=== PATIENT | female | born 1945 | race Two or more races ===

== ENCOUNTER 2021-04-20 19:27 | Inpatient (IN) | payer BC, OTHER ==
[~2021-04-20] VITALS: Ht 152.4 cm; Wt 78.8 kg
[2021-04-20] MEDS ORDERED: SODIUM CHLORIDE 0.9% 1,000 ML IV ONE (20:45)
[2021-04-20 21:04] LABS: Urine Bacteria MANY /hpf (None Seen); Urine Blood 3+ /uL (Negative); Urine Mucus FEW (None Seen); Urine Specific Gravity 1.018 (1.001-1.035); Urine WBC 279 /hpf (0 - 5)
[2021-04-20 21:04] LABS: Basophils # (auto) 0 10 ^3/uL (0-0.2); Basophils % (auto) 0.1 % (0.0-2.0); Eosinophils # (auto) 0 10 ^3/uL (0-0.8); Eosinophils % (auto) 0.1 % (0.0-7.0); Hematocrit 31.5 % (36.0-46.0); Hemoglobin 10.2 g/dL (12.2-16.2); Lymphocytes # (auto) 0.7 10 ^3/uL (0.4-5.4); Lymphocytes % (auto) 5.7 % (10.0-50.0); Mean Corpuscular Hgb Conc. 32.5 g/dL (32.0-36.0); Mean Corpuscular Volume 82.9 fL (80.0-100.0); Monocytes # (auto) 0.7 10 ^3/uL (0-1.3); Monocytes % (auto) 6.4 % (0.0-12.0); Neutrophils # (auto) 10.2 10 ^3/uL (1.6-8.6); Neutrophils % (auto) 87.7 % (37.0-80.0); Red Blood Cells 3.79 10^6/uL (4.0-5.20); Red Cell Distribution Width 14.6 % (11.8-14.3); White Blood Cell 11.6 10^3/uL (4.4-10.8)
[2021-04-20 21:17] LABS: Albumin 2.1 g/dL (3.4-5.0); Calcium 8.7 mg/dL (8.5-10.1); Potassium 4.2 mmol/L (3.5-5.1)
[2021-04-20 21:25] LABS: BUN/Creatinine Ratio 19.1; Bilirubin, Total 0.5 mg/dL (0.2-1.0); Total Protein 6.6 g/dL (6.4-8.2)
[2021-04-20] MEDS ORDERED: cefTRIAXone 1GM/50ML D5W 50 ML IV ONE (21:45)
[2021-04-21] MEDS ORDERED: ONDANSETRON HCL 4 MG/2 ML VIAL IV PRN (03:00)
[2021-04-21] MEDS ORDERED: HYDROcodone-ACET 5/325MG TAB PO PRN (03:00)
[2021-04-21] MEDS ORDERED: ALBUMIN 5% 250 ML IV ONE ×2 (03:00→03:30)
[2021-04-21] MEDS ORDERED: ACETAMINOPHEN 325 MG TAB PO PRN (03:00)
[2021-04-21 04:25] LABS: Hematocrit 29.9 % (36.0-46.0); Hemoglobin 9.8 g/dL (12.2-16.2)
[2021-04-21] MEDS ORDERED: cefTRIAXone 1GM/50ML D5W 50 ML IV SCH (09:00)
[2021-04-21] MEDS ORDERED: PANTOPRAZOLE 40 MG TAB PO SCH (10:00)
[2021-04-21] MEDS: SODIUM CHLORIDE 0.9% 1,000 ML IV SCH (10:01)
[2021-04-21] MEDS ORDERED: NITROGLYCERIN 0.4 MG SL TAB SL PRN (12:30)
[2021-04-21] MEDS ORDERED: MORPHINE SULFATE INJECTION 2 MG/ML SYRG IV PRN (12:30)
[2021-04-21 13:00] VITALS: BP 102/55
[2021-04-21] MEDS: MEROPENEM 1GM IVPB 100 ML IV SCH ×2 (14:47→22:45)
[2021-04-21] MEDS: SODIUM CHLOR 0.9% PF (SALINE LOCK) 10ML VIAL/SYR IV SCH ×2 (14:48→21:48)
[2021-04-21] MEDS ORDERED: IOHEXOL 300 MG/ML 100ML BOTTLE IJ ONE (15:39)
[2021-04-21] MEDS: CLINDAMYCIN 600MG IV 50 ML IV SCH ×2 (16:52→21:48)
[2021-04-21 16:56] VITALS: BP 100/42
[2021-04-21] MEDS ORDERED: ASPI-543 PO (18:35)
[2021-04-21] MEDS ORDERED: SIMV-8 PO (18:35)
[2021-04-21] MEDS ORDERED: ATEN-60 PO (18:35)
[2021-04-21 20:00] VITALS: BP 97/46
[2021-04-21] MEDS: ATORVASTATIN 20 MG TAB PO SCH (21:48)
[2021-04-21 22:00] VITALS: BP 97/46
[2021-04-21] MEDS ORDERED: PHENAZOPYRIDINE HCL 100 MG TAB PO SCH (22:00)
[2021-04-22] MEDS: SODIUM CHLORIDE 0.9% 1,000 ML IV SCH (04:15)
[2021-04-22 05:00] VITALS: BP 90/40
[2021-04-22 06:02] LABS: Eosinophils # (auto) 0.1 10 ^3/uL (0-0.8); Monocytes # (auto) 0.9 10 ^3/uL (0-1.3); Red Cell Distribution Width 14.4 % (11.8-14.3)
[2021-04-22 06:05] LABS: Basophils # (auto) 0 10 ^3/uL (0-0.2); Basophils % (auto) 0.3 % (0.0-2.0); Eosinophils % (auto) 0.5 % (0.0-7.0); Hemoglobin 8.4 g/dL (12.2-16.2); Lymphocytes # (auto) 0.9 10 ^3/uL (0.4-5.4); Lymphocytes % (auto) 7.2 % (10.0-50.0); Mean Corpuscular Hemoglobin 27.8 pg (28.0-32.0); Mean Corpuscular Hgb Conc. 33.5 g/dL (32.0-36.0); Monocytes % (auto) 7.5 % (0.0-12.0); Neutrophils # (auto) 9.9 10 ^3/uL (1.6-8.6); Neutrophils % (auto) 84.5 % (37.0-80.0); Red Blood Cells 3.02 10^6/uL (4.0-5.20); White Blood Cell 11.8 10^3/uL (4.4-10.8)
[2021-04-22 06:15] LABS: BUN/Creatinine Ratio 19.6; Calcium 7.6 mg/dL (8.5-10.1); Potassium 3.3 mmol/L (3.5-5.1)
[2021-04-22] MEDS: CLINDAMYCIN 600MG IV 50 ML IV SCH ×2 (06:21→13:00)
[2021-04-22] MEDS: SODIUM CHLOR 0.9% PF (SALINE LOCK) 10ML VIAL/SYR IV SCH ×3 (06:21→22:41)
[2021-04-22] MEDS: MEROPENEM 1GM IVPB 100 ML IV SCH ×2 (07:08→23:00)
[2021-04-22] MEDS ORDERED: ALBUMIN 25% 100 ML IV ONE (08:00)
[2021-04-22 09:00] VITALS: BP 88/51
[2021-04-22 12:47] VITALS: BP 105/50
[2021-04-22] MEDS ORDERED: IOTHALAMATE MEGLUMINE INJ 250ML BOT UR ONE (14:37)
[2021-04-22 14:49] LABS: INR 1.44 (0.9-1.15)
[2021-04-22 17:20] VITALS: BP 102/53
[2021-04-22] MEDS ORDERED: TPN PER PHARMACY IV SCH (17:32)
[2021-04-22] MEDS ORDERED: GOLYTELY 4L KIT PO ONE (17:45)
[2021-04-22] MEDS ORDERED: D5W/SOD CHL 0.45%/KCL 40MEQ 1,000 ML IV SCH (17:45)
[2021-04-22 20:00] VITALS: BP 107/58
[2021-04-22] MEDS ORDERED: POTASSIUM CHL 20MEQ/100ML 100 ML IV ONE (20:00)
[2021-04-22] MEDS ORDERED: DEXTROSE (50%) 50ML SYRG IV SCH (20:00)
[2021-04-22] MEDS: AMINO ACID INFUSION IN D10W 1,000 ML IV NR (21:56)
[2021-04-22] MEDS: D5W/SOD CHL 0.45%/KCL 40MEQ 1,000 ML IV SCH (21:56)
[2021-04-22] MEDS: ATORVASTATIN 20 MG TAB PO SCH (21:57)
[2021-04-22] MEDS: metroNIDAZOLE 500MG/100ML 100 ML IV SCH (21:57)
[2021-04-22 22:00] VITALS: BP 102/58
[2021-04-23 05:00] VITALS: BP 131/75
[2021-04-23] MEDS: metroNIDAZOLE 500MG/100ML 100 ML IV SCH ×2 (05:30→13:00)
[2021-04-23] MEDS: ACCU-CHEK COMFORT CURVE STRIP VI SCH ×4 (06:00→18:00)
[2021-04-23] MEDS: SODIUM CHLOR 0.9% PF (SALINE LOCK) 10ML VIAL/SYR IV SCH ×3 (06:41→22:56)
[2021-04-23] MEDS: MEROPENEM 1GM IVPB 100 ML IV SCH ×3 (06:41→21:30)
[2021-04-23] MEDS: InsuLIN REG 1unit/0.01ml Soln (100units/ml) SC SCH ×4 (06:48→18:00)
[2021-04-23 08:23] LABS: Albumin 2.1 g/dL (3.4-5.0); Calcium 8.1 mg/dL (8.5-10.1); Magnesium 2.3 mg/dL (1.6-2.6); Potassium 3.5 mmol/L (3.5-5.1)
[2021-04-23 08:27] LABS: BUN/Creatinine Ratio 11.5; Bilirubin, Total 0.4 mg/dL (0.2-1.0); Pre Albumin 3.2 mg/dL (20.0-40.0); Total Protein 5.5 g/dL (6.4-8.2)
[2021-04-23 09:00] VITALS: BP 96/52
[2021-04-23] MEDS ORDERED: POTASSIUM PHOSPHATE 44 MEQ in D5W 5% 250 ML IV ONE (09:15)
[2021-04-23] MEDS: D5W/SOD CHL 0.45%/KCL 40MEQ 1,000 ML IV SCH ×2 (09:30→22:56)
[2021-04-23] MEDS ORDERED: GASTROGRAFIN 30 ML SOL ONE (10:29)
[2021-04-23 13:00] VITALS: BP 106/61
[2021-04-23] MEDS ORDERED: IOHEXOL 300 MG/ML 100ML BOTTLE IJ ONE (14:37)
[2021-04-23] MEDS ORDERED: fentaNYL CITRATE 100 MCG/2 ML VL ONE (14:45)
[2021-04-23] MEDS ORDERED: MIDAZOLAM HCL 2MG/2ML 2ml VIAL (1mg/ml) ONE (14:46)
[2021-04-23] MEDS ORDERED: ONDANSETRON HCL 4 MG/2 ML VIAL ONE (14:46)
[2021-04-23] MEDS ORDERED: LIDOCAINE 2% (LOCAL ANESTH.) PF 5ml SDV ONE (14:46)
[2021-04-23] MEDS ORDERED: PROPOFOL 10 MG/ML 20 ML IV ONE (14:46)
[2021-04-23] MEDS ORDERED: GLYCOPYRROLATE 0.2 MG/ML 1ML VIAL ONE (15:49)
[2021-04-23] MEDS ORDERED: NEOSTIGMINE 1 MG/ML INJ (10mg/10ML VIAL) ONE (15:49)
[2021-04-23] MEDS ORDERED: ONDANSETRON HCL 4 MG/2 ML VIAL IV PRN (16:15)
[2021-04-23] MEDS ORDERED: HYDROmorphone HCL 2 MG/ML VL IV PRN (16:15)
[2021-04-23] MEDS: AMINO ACID INFUSION IN D10W 1,000 ML IV NR (19:49)
[2021-04-23 20:00] VITALS: BP 93/51
[2021-04-23] MEDS ORDERED: PPN PER PHARMACY IV NR ×8 (20:00)
[2021-04-23] MEDS: ATORVASTATIN 20 MG TAB PO SCH (22:55)
[2021-04-24] MEDS ORDERED: POTASSIUM PHOSPHATE 44 MEQ in D5W 5% 250 ML IV ONE (01:00)
[2021-04-24] MEDS: metroNIDAZOLE 500MG/100ML 100 ML IV SCH ×3 (01:12→17:00)
[2021-04-24] MEDS: InsuLIN REG 1unit/0.01ml Soln (100units/ml) SC SCH ×4 (01:13→18:00)
[2021-04-24 05:10] VITALS: BP 106/55
[2021-04-24] MEDS: SODIUM CHLOR 0.9% PF (SALINE LOCK) 10ML VIAL/SYR IV SCH ×2 (06:20→21:55)
[2021-04-24] MEDS: ACCU-CHEK COMFORT CURVE STRIP VI SCH ×4 (06:21→18:00)
[2021-04-24] MEDS: MEROPENEM 1GM IVPB 100 ML IV SCH ×3 (06:39→21:55)
[2021-04-24 07:35] LABS: Potassium 4.2 mmol/L (3.5-5.1)
[2021-04-24 07:42] LABS: Albumin 1.7 g/dL (3.4-5.0); BUN/Creatinine Ratio 11.4; Bilirubin, Total 0.4 mg/dL (0.2-1.0); Calcium 7.8 mg/dL (8.5-10.1); Magnesium 2.2 mg/dL (1.6-2.6); Phosphorus 4.6 mg/dL (2.5-4.90); Total Protein 4.9 g/dL (6.4-8.2)
[2021-04-24 08:58] VITALS: BP 102/51
[2021-04-24 13:00] VITALS: BP 98/59
[2021-04-24] MEDS: D5W/SOD CHL 0.45%/KCL 40MEQ 1,000 ML IV SCH (16:00)
[2021-04-24 17:08] VITALS: BP 104/56
[2021-04-24] MEDS ORDERED: LIDOCAINE 1% (LOCAL ANESTH.) PF 5ml SDV ID ONE (18:15)
[2021-04-24 20:00] VITALS: BP 99/55
[2021-04-24] MEDS ORDERED: PPN PER PHARMACY IV NR ×6 (20:00)
[2021-04-24] MEDS: ATORVASTATIN 20 MG TAB PO SCH (21:55)
[2021-04-24 22:00] VITALS: BP 99/55
[2021-04-25] MEDS: InsuLIN REG 1unit/0.01ml Soln (100units/ml) SC SCH ×4 (00:55→18:00)
[2021-04-25] MEDS: metroNIDAZOLE 500MG/100ML 100 ML IV SCH ×3 (00:57→17:18)
[2021-04-25 05:00] VITALS: BP 107/53
[2021-04-25] MEDS: ACCU-CHEK COMFORT CURVE STRIP VI SCH ×4 (06:00→18:27)
[2021-04-25 06:07] LABS: Albumin 1.6 g/dL (3.4-5.0); Calcium 7.4 mg/dL (8.5-10.1); Magnesium 2.1 mg/dL (1.6-2.6); Potassium 5.5 mmol/L (3.5-5.1)
[2021-04-25 06:10] LABS: Bilirubin, Total 0.2 mg/dL (0.2-1.0); Phosphorus 1.7 mg/dL (2.5-4.90); Total Protein 4.8 g/dL (6.4-8.2)
[2021-04-25] MEDS: MEROPENEM 1GM IVPB 100 ML IV SCH (06:43)
[2021-04-25 08:35] VITALS: BP 105/55
[2021-04-25] MEDS: SODIUM CHLOR 0.9% PF (SALINE LOCK) 10ML VIAL/SYR IV SCH ×2 (10:15→21:02)
[2021-04-25] MEDS: D5W/SOD CHL 0.45% 1,000 ML IV SCH (10:40)
[2021-04-25] MEDS ORDERED: SODIUM PHOSPHATES 30 MEQ in D5W 5% 250 ML IV ONE (10:45)
[2021-04-25] MEDS ORDERED: GOLYTELY 4L KIT PO ONE (11:00)
[2021-04-25] MEDS ORDERED: InsuLIN REG 1unit/0.01ml Soln (100units/ml) IV ONE (12:00)
[2021-04-25] MEDS ORDERED: CALCIUM GLUC 1,000mg/50ml-NS 50 ML IV ONE (12:00)
[2021-04-25] MEDS ORDERED: DEXTROSE (50%) 50ML SYRG IV ONE (12:00)
[2021-04-25 12:35] VITALS: BP 104/55
[2021-04-25] MEDS: CEFTRIAXONE SODIUM 2 GM in D5W 5% 50 ML IV SCH (12:52)
[2021-04-25 14:40] VITALS: BP 119/58
[2021-04-25] MEDS ORDERED: TPN PER PHARMACY IV NR ×6 (20:00)
[2021-04-25] MEDS: ATORVASTATIN 20 MG TAB PO SCH (21:02)
[2021-04-25 22:00] VITALS: BP 112/61
[2021-04-26] MEDS: metroNIDAZOLE 500MG/100ML 100 ML IV SCH ×3 (00:08→17:35)
[2021-04-26] MEDS: ACCU-CHEK COMFORT CURVE STRIP VI SCH ×4 (00:08→17:32)
[2021-04-26] MEDS: InsuLIN REG 1unit/0.01ml Soln (100units/ml) SC SCH ×4 (00:09→17:36)
[2021-04-26 05:00] VITALS: BP 113/57
[2021-04-26 05:53] LABS: Basophils # (auto) 0 10 ^3/uL (0-0.2); Basophils % (auto) 0.6 % (0.0-2.0); Eosinophils # (auto) 0.2 10 ^3/uL (0-0.8); Eosinophils % (auto) 2.2 % (0.0-7.0); Hematocrit 26.5 % (36.0-46.0); Hemoglobin 8.9 g/dL (12.2-16.2); Lymphocytes # (auto) 0.9 10 ^3/uL (0.4-5.4); Lymphocytes % (auto) 12.2 % (10.0-50.0); Mean Corpuscular Hemoglobin 27.8 pg (28.0-32.0); Mean Corpuscular Hgb Conc. 33.7 g/dL (32.0-36.0); Mean Corpuscular Volume 82.6 fL (80.0-100.0); Monocytes # (auto) 0.6 10 ^3/uL (0-1.3); Monocytes % (auto) 8.6 % (0.0-12.0); Neutrophils # (auto) 5.5 10 ^3/uL (1.6-8.6); Neutrophils % (auto) 76.4 % (37.0-80.0); Red Blood Cells 3.21 10^6/uL (4.0-5.20); Red Cell Distribution Width 14.6 % (11.8-14.3); White Blood Cell 7.2 10^3/uL (4.4-10.8)
[2021-04-26] MEDS: D5W/SOD CHL 0.45% 1,000 ML IV SCH (05:57)
[2021-04-26 06:11] LABS: BUN/Creatinine Ratio 23.8; Potassium 3.2 mmol/L (3.5-5.1)
[2021-04-26 06:12] LABS: Albumin 1.7 g/dL (3.4-5.0); Calcium 7.5 mg/dL (8.5-10.1); Magnesium 2.1 mg/dL (1.6-2.6)
[2021-04-26 06:14] LABS: Bilirubin, Total 0.2 mg/dL (0.2-1.0); Phosphorus 2.7 mg/dL (2.5-4.90); Total Protein 5.2 g/dL (6.4-8.2)
[2021-04-26] MEDS ORDERED: POTASSIUM CHL 20 Meq TABLET PO ONE (07:00)
[2021-04-26 09:00] VITALS: BP 117/63
[2021-04-26] MEDS: CEFTRIAXONE SODIUM 2 GM in D5W 5% 50 ML IV SCH (09:48)
[2021-04-26] MEDS: SODIUM CHLOR 0.9% PF (SALINE LOCK) 10ML VIAL/SYR IV SCH ×2 (09:49→21:27)
[2021-04-26] MEDS ORDERED: POTASSIUM CHL 20MEQ/100ML 100 ML IV ONE (10:00)
[2021-04-26 12:48] VITALS: BP 111/68
[2021-04-26 16:35] VITALS: BP 111/65
[2021-04-26] MEDS ORDERED: TPN PER PHARMACY IV NR ×7 (20:00)
[2021-04-26 20:53] VITALS: BP 108/61
[2021-04-26] MEDS: ATORVASTATIN 20 MG TAB PO SCH (21:27)
[2021-04-27] MEDS: metroNIDAZOLE 500MG/100ML 100 ML IV SCH ×3 (00:01→17:10)
[2021-04-27] MEDS: ACCU-CHEK COMFORT CURVE STRIP VI SCH ×4 (00:01→17:10)
[2021-04-27] MEDS: InsuLIN REG 1unit/0.01ml Soln (100units/ml) SC SCH ×4 (00:14→17:20)
[2021-04-27] MEDS: D5W/SOD CHL 0.45% 1,000 ML IV SCH ×2 (01:50→22:15)
[2021-04-27 04:41] VITALS: BP 116/71
[2021-04-27 05:02] LABS: Albumin 1.9 g/dL (3.4-5.0); Calcium 7.5 mg/dL (8.5-10.1); Magnesium 2.2 mg/dL (1.6-2.6); Potassium 3.8 mmol/L (3.5-5.1)
[2021-04-27 05:05] LABS: BUN/Creatinine Ratio 27.8
[2021-04-27 05:07] LABS: Bilirubin, Total 0.2 mg/dL (0.2-1.0); Total Protein 5.6 g/dL (6.4-8.2)
[2021-04-27] MEDS ORDERED: POVIDONE IODINE 10 % TOPICAL OINT 30GM TOP ONE (07:41)
[2021-04-27] MEDS ORDERED: PHENYLEPHRINE HCL 10 MG/ML VL IV ONE (07:55)
[2021-04-27] MEDS ORDERED: cefTRIAXone 1GM/50ML D5W 50 ML IV ONE (08:15)
[2021-04-27 09:00] VITALS: BP 114/62
[2021-04-27] MEDS: SODIUM CHLOR 0.9% PF (SALINE LOCK) 10ML VIAL/SYR IV SCH ×2 (10:00→21:46)
[2021-04-27] MEDS: CEFTRIAXONE SODIUM 2 GM in D5W 5% 50 ML IV SCH (10:00)
[2021-04-27] MEDS ORDERED: SODIUM PHOSPHATES 40 MEQ in D5W 5% 250 ML IV ONE (10:00)
[2021-04-27] MEDS ORDERED: fentaNYL CITRATE 5 ML ONE (10:44)
[2021-04-27] MEDS ORDERED: MIDAZOLAM HCL 2MG/2ML 2ml VIAL (1mg/ml) ONE (10:44)
[2021-04-27] MEDS ORDERED: HYDROmorphone HCL 2 MG/ML VL ONE (10:44)
[2021-04-27] MEDS ORDERED: BUPIVACAINE W/ EPINEPH 0.25% INJ 50ML MDV ONE (10:50)
[2021-04-27] MEDS ORDERED: LIDOCAINE 2% (LOCAL ANESTH.) PF 5ml SDV ONE (10:59)
[2021-04-27] MEDS ORDERED: ONDANSETRON HCL 4 MG/2 ML VIAL ONE (10:59)
[2021-04-27] MEDS ORDERED: ROCURONIUM 10MG/ML 10ML VIAL IV ONE (10:59)
[2021-04-27] MEDS ORDERED: PROPOFOL 10 MG/ML 20 ML IV ONE (10:59)
[2021-04-27] MEDS ORDERED: ONDANSETRON HCL 4 MG/2 ML VIAL IV PRN (11:00)
[2021-04-27] MEDS ORDERED: HYDROmorphone HCL 2 MG/ML VL IV PRN ×3 (11:00→15:15)
[2021-04-27] MEDS ORDERED: SUGAMMADEX 200mg/2ml Vial (100MG/ML) IV ONE (11:01)
[2021-04-27 13:30] VITALS: BP 115/59
[2021-04-27] MEDS: METOPROLOL TARTRATE 1MG/1ML-5ML VIAL IV SCH ×3 (14:43→21:48)
[2021-04-27 17:00] VITALS: BP 101/59
[2021-04-27] MEDS ORDERED: TPN PER PHARMACY IV NR ×9 (20:00)
[2021-04-27] MEDS: ATORVASTATIN 20 MG TAB PO SCH (21:45)
[2021-04-27 22:00] VITALS: BP 117/41
[2021-04-27 22:07] VITALS: BP 109/54
[2021-04-28] MEDS: InsuLIN REG 1unit/0.01ml Soln (100units/ml) SC SCH ×4 (00:31→17:20)
[2021-04-28] MEDS: metroNIDAZOLE 500MG/100ML 100 ML IV SCH ×3 (01:06→17:17)
[2021-04-28] MEDS: METOPROLOL TARTRATE 1MG/1ML-5ML VIAL IV SCH ×6 (02:00→22:00)
[2021-04-28 05:00] VITALS: BP 113/59
[2021-04-28 05:39] LABS: Basophils # (auto) 0.1 10 ^3/uL (0-0.2); Basophils % (auto) 0.6 % (0.0-2.0); Eosinophils # (auto) 0.1 10 ^3/uL (0-0.8); Hematocrit 25.7 % (36.0-46.0); Hemoglobin 8.6 g/dL (12.2-16.2); Lymphocytes # (auto) 0.9 10 ^3/uL (0.4-5.4); Lymphocytes % (auto) 9.4 % (10.0-50.0); Mean Corpuscular Hemoglobin 28.1 pg (28.0-32.0); Mean Corpuscular Hgb Conc. 33.6 g/dL (32.0-36.0); Mean Corpuscular Volume 83.5 fL (80.0-100.0); Monocytes # (auto) 0.6 10 ^3/uL (0-1.3); Monocytes % (auto) 6.3 % (0.0-12.0); Neutrophils # (auto) 7.8 10 ^3/uL (1.6-8.6); Neutrophils % (auto) 82.7 % (37.0-80.0); Red Blood Cells 3.07 10^6/uL (4.0-5.20); Red Cell Distribution Width 14.2 % (11.8-14.3); White Blood Cell 9.5 10^3/uL (4.4-10.8)
[2021-04-28 05:50] LABS: Albumin 1.6 g/dL (3.4-5.0); Calcium 7.5 mg/dL (8.5-10.1); Magnesium 2.2 mg/dL (1.6-2.6); Potassium 3.6 mmol/L (3.5-5.1)
[2021-04-28 05:55] LABS: Bilirubin, Total 0.2 mg/dL (0.2-1.0); Phosphorus 2.6 mg/dL (2.5-4.90); Total Protein 4.7 g/dL (6.4-8.2)
[2021-04-28] MEDS: ACCU-CHEK COMFORT CURVE STRIP VI SCH ×4 (06:27→17:18)
[2021-04-28 08:56] VITALS: BP 113/60
[2021-04-28] MEDS: SODIUM CHLOR 0.9% PF (SALINE LOCK) 10ML VIAL/SYR IV SCH ×2 (09:18→22:00)
[2021-04-28] MEDS: CEFTRIAXONE SODIUM 2 GM in D5W 5% 50 ML IV SCH (10:36)
[2021-04-28 13:00] VITALS: BP 114/60
[2021-04-28 17:00] VITALS: BP 118/59
[2021-04-28] MEDS: D5W/SOD CHL 0.45% 1,000 ML IV SCH (17:17)
[2021-04-28] MEDS ORDERED: TPN PER PHARMACY IV NR ×10 (20:00)
[2021-04-28 22:00] VITALS: BP 107/52
[2021-04-28] MEDS: ATORVASTATIN 20 MG TAB PO SCH (22:28)
[2021-04-29] MEDS: InsuLIN REG 1unit/0.01ml Soln (100units/ml) SC SCH ×4 (00:37→17:51)
[2021-04-29] MEDS: metroNIDAZOLE 500MG/100ML 100 ML IV SCH ×3 (00:53→17:00)
[2021-04-29] MEDS: METOPROLOL TARTRATE 1MG/1ML-5ML VIAL IV SCH ×6 (02:00→21:31)
[2021-04-29 05:00] VITALS: BP 123/62
[2021-04-29 05:49] LABS: Basophils # (auto) 0.1 10 ^3/uL (0-0.2); Basophils % (auto) 0.5 % (0.0-2.0); Eosinophils # (auto) 0.2 10 ^3/uL (0-0.8); Hemoglobin 7.7 g/dL (12.2-16.2)
[2021-04-29 05:52] LABS: Eosinophils % (auto) 1.7 % (0.0-7.0); Hematocrit 22.6 % (36.0-46.0); Mean Corpuscular Hemoglobin 28.4 pg (28.0-32.0); Mean Corpuscular Volume 83.6 fL (80.0-100.0); Monocytes # (auto) 0.8 10 ^3/uL (0-1.3); Monocytes % (auto) 7.7 % (0.0-12.0); Neutrophils # (auto) 7.9 10 ^3/uL (1.6-8.6); Neutrophils % (auto) 80.1 % (37.0-80.0); Red Cell Distribution Width 14.4 % (11.8-14.3); White Blood Cell 9.9 10^3/uL (4.4-10.8)
[2021-04-29] MEDS: ACCU-CHEK COMFORT CURVE STRIP VI SCH ×4 (06:00→17:53)
[2021-04-29 06:10] LABS: Potassium 3.7 mmol/L (3.5-5.1)
[2021-04-29 06:16] LABS: Albumin 1.5 g/dL (3.4-5.0); BUN/Creatinine Ratio 27.3; Bilirubin, Total 0.4 mg/dL (0.2-1.0); Calcium 7.7 mg/dL (8.5-10.1); Magnesium 1.9 mg/dL (1.6-2.6); Phosphorus 2.4 mg/dL (2.5-4.90); Total Protein 4.8 g/dL (6.4-8.2)
[2021-04-29 08:00] VITALS: BP 104/58
[2021-04-29 09:13] VITALS: BP 118/57
[2021-04-29] MEDS ORDERED: SODIUM PHOSPHATES 30 MEQ in D5W 5% 250 ML IV ONE (09:30)
[2021-04-29] MEDS: CEFTRIAXONE SODIUM 2 GM in D5W 5% 50 ML IV SCH (10:07)
[2021-04-29] MEDS: SODIUM CHLOR 0.9% PF (SALINE LOCK) 10ML VIAL/SYR IV SCH ×2 (10:08→21:33)
[2021-04-29] MEDS ORDERED: ALBUMIN 25% 100 ML IV ONE (10:45)
[2021-04-29] MEDS ORDERED: FUROSEMIDE 40 MG/4 ML VIAL IV ONE (10:45)
[2021-04-29] MEDS: D5W/SOD CHL 0.45% 1,000 ML IV SCH ×2 (14:00→17:49)
[2021-04-29 17:00] VITALS: BP 117/47
[2021-04-29 20:00] VITALS: BP 108/55
[2021-04-29] MEDS ORDERED: TPN PER PHARMACY IV NR ×10 (20:00)
[2021-04-29 22:00] VITALS: BP 112/55
[2021-04-30] MEDS: metroNIDAZOLE 500MG/100ML 100 ML IV SCH ×3 (00:53→17:00)
[2021-04-30] MEDS: InsuLIN REG 1unit/0.01ml Soln (100units/ml) SC SCH ×4 (00:53→18:27)
[2021-04-30] MEDS: METOPROLOL TARTRATE 1MG/1ML-5ML VIAL IV SCH ×6 (02:00→22:26)
[2021-04-30 05:00] VITALS: BP 121/59
[2021-04-30 05:59] LABS: Hematocrit 23.3 % (36.0-46.0); Hemoglobin 7.8 g/dL (12.2-16.2)
[2021-04-30] MEDS: ACCU-CHEK COMFORT CURVE STRIP VI SCH ×4 (06:04→17:34)
[2021-04-30 06:21] LABS: Calcium 8.1 mg/dL (8.5-10.1); Potassium 3.1 mmol/L (3.5-5.1)
[2021-04-30 06:28] LABS: Bilirubin, Total 0.2 mg/dL (0.2-1.0); Magnesium 2.6 mg/dL (1.6-2.6); Phosphorus 3.2 mg/dL (2.5-4.90); Total Protein 5.4 g/dL (6.4-8.2)
[2021-04-30 08:38] VITALS: BP 118/56
[2021-04-30] MEDS: POTASSIUM CHL 20MEQ/100ML 100 ML IV SCH ×2 (09:30→11:30)
[2021-04-30] MEDS: CEFTRIAXONE SODIUM 2 GM in D5W 5% 50 ML IV SCH (10:00)
[2021-04-30] MEDS: SODIUM CHLOR 0.9% PF (SALINE LOCK) 10ML VIAL/SYR IV SCH ×2 (10:00→22:26)
[2021-04-30 13:00] VITALS: BP 106/56
[2021-04-30 13:44] LABS: INR 1.17 (0.9-1.15); Partial Thromboplastin Time 27.5 sec (23.6-33.0)
[2021-04-30 16:19] VITALS: BP 117/59
[2021-04-30] MEDS ORDERED: LIDOCAINE 1% (LOCAL ANESTH.) PF 5ml SDV ID ONE (18:00)
[2021-04-30] MEDS ORDERED: TPN PER PHARMACY IV NR ×10 (20:00)
[2021-04-30 22:00] VITALS: BP 113/64
[2021-05-01] MEDS: ACCU-CHEK COMFORT CURVE STRIP VI SCH ×5 (00:03→23:59)
[2021-05-01] MEDS: InsuLIN REG 1unit/0.01ml Soln (100units/ml) SC SCH ×4 (00:09→18:07)
[2021-05-01] MEDS: metroNIDAZOLE 500MG/100ML 100 ML IV SCH ×3 (01:05→17:00)
[2021-05-01] MEDS: METOPROLOL TARTRATE 1MG/1ML-5ML VIAL IV SCH ×6 (01:13→23:23)
[2021-05-01 05:00] VITALS: BP 130/64
[2021-05-01] MEDS: D5W/SOD CHL 0.45% 1,000 ML IV SCH (05:24)
[2021-05-01 06:19] LABS: Potassium 3.7 mmol/L (3.5-5.1)
[2021-05-01 06:31] LABS: BUN/Creatinine Ratio 43.9; Bilirubin, Total 0.2 mg/dL (0.2-1.0); Calcium 8.4 mg/dL (8.5-10.1); Magnesium 2.5 mg/dL (1.6-2.6); Phosphorus 3.3 mg/dL (2.5-4.90); Total Protein 5.6 g/dL (6.4-8.2)
[2021-05-01 08:00] VITALS: BP 135/62
[2021-05-01 09:00] VITALS: BP 135/62
[2021-05-01] MEDS: CEFTRIAXONE SODIUM 2 GM in D5W 5% 50 ML IV SCH (10:00)
[2021-05-01] MEDS: SODIUM CHLOR 0.9% PF (SALINE LOCK) 10ML VIAL/SYR IV SCH ×2 (10:00→23:23)
[2021-05-01] MEDS ORDERED: LINEZOLID 600MG/300ML 300 ML IV ONE (11:30)
[2021-05-01] MEDS: SODIUM FERR GLUC 62.5MG/5ML 125 MG in SODIUM CHL 0.9% 100 ML IV SCH (12:00)
[2021-05-01 13:00] VITALS: BP 138/60
[2021-05-01 13:17] LABS: % Iron Saturation 25.6 % (15-50)
[2021-05-01 17:00] VITALS: BP 134/69
[2021-05-01] MEDS ORDERED: TPN PER PHARMACY IV NR ×10 (20:00)
[2021-05-01 22:00] VITALS: BP 144/67
[2021-05-01] MEDS: LINEZOLID 600MG/300ML 300 ML IV SCH (23:23)
[2021-05-02] MEDS: metroNIDAZOLE 500MG/100ML 100 ML IV SCH ×3 (01:30→17:41)
[2021-05-02] MEDS: METOPROLOL TARTRATE 1MG/1ML-5ML VIAL IV SCH ×6 (02:19→22:10)
[2021-05-02] MEDS: D5W/SOD CHL 0.45% 1,000 ML IV SCH ×2 (02:24→16:27)
[2021-05-02 05:00] VITALS: BP 142/72
[2021-05-02] MEDS: ACCU-CHEK COMFORT CURVE STRIP VI SCH ×4 (05:36→23:23)
[2021-05-02] MEDS: InsuLIN REG 1unit/0.01ml Soln (100units/ml) SC SCH ×5 (05:36→23:29)
[2021-05-02 06:24] LABS: Basophils # (auto) 0.1 10 ^3/uL (0-0.2); Eosinophils # (auto) 0.1 10 ^3/uL (0-0.8); Eosinophils % (auto) 1.8 % (0.0-7.0); Hematocrit 24.3 % (36.0-46.0); Hemoglobin 8.1 g/dL (12.2-16.2); Lymphocytes # (auto) 0.9 10 ^3/uL (0.4-5.4); Lymphocytes % (auto) 13.1 % (10.0-50.0); Mean Corpuscular Hemoglobin 28.2 pg (28.0-32.0); Mean Corpuscular Hgb Conc. 33.2 g/dL (32.0-36.0); Mean Corpuscular Volume 84.7 fL (80.0-100.0); Monocytes # (auto) 0.5 10 ^3/uL (0-1.3); Monocytes % (auto) 7.4 % (0.0-12.0); Neutrophils # (auto) 5.4 10 ^3/uL (1.6-8.6); Neutrophils % (auto) 76.7 % (37.0-80.0); Nucleated Red Blood Cells % 0.1 %; Red Blood Cells 2.86 10^6/uL (4.0-5.20); Red Cell Distribution Width 15.3 % (11.8-14.3); White Blood Cell 7.1 10^3/uL (4.4-10.8)
[2021-05-02 06:36] LABS: Potassium 3.5 mmol/L (3.5-5.1)
[2021-05-02 06:42] LABS: BUN/Creatinine Ratio 34.7; Calcium 8.1 mg/dL (8.5-10.1); Phosphorus 3.3 mg/dL (2.5-4.90)
[2021-05-02 09:00] VITALS: BP 149/78
[2021-05-02 10:09] LABS: Alanine Aminotransferase 12 U/L (13-56); Albumin 1.9 g/dL (3.4-5.0); Bilirubin, Direct < 0.1 mg/dL (0-0.2)
[2021-05-02 10:12] LABS: Alkaline Phosphatase 56 U/L (45-117); Aspartate Aminotransferase 12 U/L (15-37); Bilirubin, Total 0.2 mg/dL (0.2-1.0); Total Protein 5.5 g/dL (6.4-8.2)
[2021-05-02] MEDS: ENOXAPARIN SOD 40 MG/0.4 ML SYRINGE SC SCH (10:15)
[2021-05-02] MEDS: LINEZOLID 600MG/300ML 300 ML IV SCH ×2 (10:16→22:11)
[2021-05-02] MEDS: SODIUM CHLOR 0.9% PF (SALINE LOCK) 10ML VIAL/SYR IV SCH ×2 (12:18→22:11)
[2021-05-02 12:45] VITALS: BP 129/54
[2021-05-02] MEDS: SODIUM FERR GLUC 62.5MG/5ML 125 MG in SODIUM CHL 0.9% 100 ML IV SCH (13:06)
[2021-05-02 17:00] VITALS: BP 126/64
[2021-05-02] MEDS ORDERED: TPN PER PHARMACY IV NR ×9 (20:00)
[2021-05-02 22:35] VITALS: BP 137/64
[2021-05-03] MEDS: metroNIDAZOLE 500MG/100ML 100 ML IV SCH ×2 (00:49→08:19)
[2021-05-03] MEDS: METOPROLOL TARTRATE 1MG/1ML-5ML VIAL IV SCH ×6 (01:52→21:55)
[2021-05-03 05:26] VITALS: BP 122/63
[2021-05-03] MEDS: InsuLIN REG 1unit/0.01ml Soln (100units/ml) SC SCH ×3 (05:47→18:45)
[2021-05-03] MEDS: ACCU-CHEK COMFORT CURVE STRIP VI SCH ×3 (05:47→18:00)
[2021-05-03 08:10] LABS: Albumin 1.9 g/dL (3.4-5.0); Calcium 8.1 mg/dL (8.5-10.1); Magnesium 2.1 mg/dL (1.6-2.6); Potassium 3.7 mmol/L (3.5-5.1)
[2021-05-03 08:14] LABS: Bilirubin, Total 0.3 mg/dL (0.2-1.0); Phosphorus 3.3 mg/dL (2.5-4.90); Total Protein 5.4 g/dL (6.4-8.2)
[2021-05-03 09:00] VITALS: BP 125/60
[2021-05-03] MEDS: ENOXAPARIN SOD 40 MG/0.4 ML SYRINGE SC SCH (10:00)
[2021-05-03] MEDS: LINEZOLID 600MG/300ML 300 ML IV SCH ×2 (10:00→21:53)
[2021-05-03] MEDS: SODIUM CHLOR 0.9% PF (SALINE LOCK) 10ML VIAL/SYR IV SCH ×2 (10:00→21:54)
[2021-05-03] MEDS: SODIUM FERR GLUC 62.5MG/5ML 125 MG in SODIUM CHL 0.9% 100 ML IV SCH (12:00)
[2021-05-03 13:00] VITALS: BP 134/60
[2021-05-03 17:00] VITALS: BP 126/63
[2021-05-03] MEDS: D5W/SOD CHL 0.45% 1,000 ML IV SCH ×2 (17:17→22:21)
[2021-05-03] MEDS ORDERED: TPN PER PHARMACY IV NR ×9 (20:00)
[2021-05-03 21:57] VITALS: BP 124/59
[2021-05-04] MEDS: ACCU-CHEK COMFORT CURVE STRIP VI SCH ×4 (00:03→17:00)
[2021-05-04] MEDS: InsuLIN REG 1unit/0.01ml Soln (100units/ml) SC SCH ×4 (00:04→17:00)
[2021-05-04] MEDS: METOPROLOL TARTRATE 1MG/1ML-5ML VIAL IV SCH ×6 (02:02→21:46)
[2021-05-04 04:49] VITALS: BP 133/64
[2021-05-04 07:02] LABS: Calcium 8.2 mg/dL (8.5-10.1); Magnesium 2.2 mg/dL (1.6-2.6); Potassium 3.8 mmol/L (3.5-5.1)
[2021-05-04 07:05] LABS: BUN/Creatinine Ratio 36.5; Bilirubin, Total 0.3 mg/dL (0.2-1.0); Phosphorus 3.5 mg/dL (2.5-4.90); Total Protein 5.7 g/dL (6.4-8.2)
[2021-05-04 09:00] VITALS: BP 127/61
[2021-05-04] MEDS: SODIUM CHLOR 0.9% PF (SALINE LOCK) 10ML VIAL/SYR IV SCH ×2 (09:55→21:46)
[2021-05-04] MEDS: ENOXAPARIN SOD 40 MG/0.4 ML SYRINGE SC SCH (09:56)
[2021-05-04] MEDS: LINEZOLID 600MG/300ML 300 ML IV SCH ×2 (09:56→21:17)
[2021-05-04] MEDS: SODIUM FERR GLUC 62.5MG/5ML 125 MG in SODIUM CHL 0.9% 100 ML IV SCH (12:03)
[2021-05-04] MEDS ORDERED: GASTROGRAFIN 120 ML SOL ONE (12:09)
[2021-05-04 17:00] VITALS: BP 106/59
[2021-05-04] MEDS ORDERED: FAT EMULSION IV NR ×9 (20:00)
[2021-05-04] MEDS ORDERED: [UNRECOGNIZED DRUG - OTHER] IV NR ×9 (20:00)
[2021-05-04] MEDS ORDERED: SODIUM CHLORIDE IV NR ×9 (20:00)
[2021-05-04] MEDS ORDERED: SODIUM PHOSPHATES IV NR ×9 (20:00)
[2021-05-04 22:00] VITALS: BP 139/62
[2021-05-05] MEDS: ACCU-CHEK COMFORT CURVE STRIP VI SCH ×5 (00:04→23:59)
[2021-05-05] MEDS: InsuLIN REG 1unit/0.01ml Soln (100units/ml) SC SCH ×5 (00:05→23:59)
[2021-05-05] MEDS: METOPROLOL TARTRATE 1MG/1ML-5ML VIAL IV SCH ×6 (01:33→23:01)
[2021-05-05 05:00] VITALS: BP 137/58
[2021-05-05 06:41] LABS: Albumin 2.1 g/dL (3.4-5.0); Calcium 8.4 mg/dL (8.5-10.1); Magnesium 2.3 mg/dL (1.6-2.6); Potassium 3.6 mmol/L (3.5-5.1)
[2021-05-05 06:45] LABS: BUN/Creatinine Ratio 39.3; Bilirubin, Total 0.4 mg/dL (0.2-1.0); Phosphorus 3.7 mg/dL (2.5-4.90); Total Protein 5.9 g/dL (6.4-8.2)
[2021-05-05] MEDS: D5W/SOD CHL 0.45% 1,000 ML IV SCH (08:10)
[2021-05-05 09:00] VITALS: BP 142/68
[2021-05-05] MEDS: SODIUM CHLOR 0.9% PF (SALINE LOCK) 10ML VIAL/SYR IV SCH ×2 (10:00→22:31)
[2021-05-05] MEDS: ENOXAPARIN SOD 40 MG/0.4 ML SYRINGE SC SCH (10:43)
[2021-05-05] MEDS: SODIUM FERR GLUC 62.5MG/5ML 125 MG in SODIUM CHL 0.9% 100 ML IV SCH (12:24)
[2021-05-05] MEDS: LINEZOLID 600MG/300ML 300 ML IV SCH ×2 (12:25→22:31)
[2021-05-05 13:00] VITALS: BP 133/72
[2021-05-05 17:00] VITALS: BP 130/60
[2021-05-05] MEDS ORDERED: TPN PER PHARMACY IV NR ×9 (20:00)
[2021-05-05 22:00] VITALS: BP 140/59
[2021-05-06] MEDS: METOPROLOL TARTRATE 1MG/1ML-5ML VIAL IV SCH ×2 (02:27→06:15)
[2021-05-06 05:00] VITALS: BP 132/67
[2021-05-06] MEDS: InsuLIN REG 1unit/0.01ml Soln (100units/ml) SC SCH (06:00)
[2021-05-06] MEDS: D5W/SOD CHL 0.45% 1,000 ML IV SCH (06:16)
[2021-05-06] MEDS: ACCU-CHEK COMFORT CURVE STRIP VI SCH (06:16)
[2021-05-06 06:34] LABS: Albumin 2.1 g/dL (3.4-5.0); Calcium 8.4 mg/dL (8.5-10.1); Potassium 3.8 mmol/L (3.5-5.1)
[2021-05-06 06:39] LABS: BUN/Creatinine Ratio 42.3; Bilirubin, Total 0.4 mg/dL (0.2-1.0); Phosphorus 3.4 mg/dL (2.5-4.90); Total Protein 5.9 g/dL (6.4-8.2)
[2021-05-06 09:00] VITALS: BP 123/54
[2021-05-06] MEDS: ENOXAPARIN SOD 40 MG/0.4 ML SYRINGE SC SCH (10:00)
[2021-05-06] MEDS: LINEZOLID 600MG/300ML 300 ML IV SCH ×2 (10:02→21:45)
[2021-05-06] MEDS: ATENOLOL 25 MG TAB PO SCH ×2 (10:02→21:46)
[2021-05-06] MEDS: SODIUM CHLOR 0.9% PF (SALINE LOCK) 10ML VIAL/SYR IV SCH ×2 (10:02→21:31)
[2021-05-06] MEDS: SODIUM FERR GLUC 62.5MG/5ML 125 MG in SODIUM CHL 0.9% 100 ML IV SCH (12:48)
[2021-05-06 13:00] VITALS: BP 124/61
[2021-05-06 17:00] VITALS: BP 129/48
[2021-05-06] MEDS ORDERED: TPN PER PHARMACY IV NR ×9 (20:00)
[2021-05-06 22:00] VITALS: BP 128/60
[2021-05-07 05:00] VITALS: BP 129/55
[2021-05-07 09:10] VITALS: BP 122/52
[2021-05-07] MEDS: LINEZOLID 600MG/300ML 300 ML IV SCH (09:13)
[2021-05-07] MEDS: ATENOLOL 25 MG TAB PO SCH ×2 (09:14→22:13)
[2021-05-07] MEDS: SODIUM CHLOR 0.9% PF (SALINE LOCK) 10ML VIAL/SYR IV SCH ×2 (09:29→22:13)
[2021-05-07] MEDS: ENOXAPARIN SOD 40 MG/0.4 ML SYRINGE SC SCH (10:00)
[2021-05-07 12:40] LABS: Basophils # (auto) 0.1 10 ^3/uL (0-0.2); Eosinophils # (auto) 0.1 10 ^3/uL (0-0.8); Hematocrit 24.7 % (36.0-46.0); Lymphocytes # (auto) 0.7 10 ^3/uL (0.4-5.4); Monocytes # (auto) 0.4 10 ^3/uL (0-1.3); White Blood Cell 5.3 10^3/uL (4.4-10.8)
[2021-05-07 12:42] LABS: Basophils % (auto) 1.2 % (0.0-2.0); Eosinophils % (auto) 1.9 % (0.0-7.0); Hemoglobin 8.1 g/dL (12.2-16.2); Lymphocytes % (auto) 13.9 % (10.0-50.0); Mean Corpuscular Hemoglobin 28.2 pg (28.0-32.0); Mean Corpuscular Hgb Conc. 32.7 g/dL (32.0-36.0); Mean Corpuscular Volume 86.2 fL (80.0-100.0); Monocytes % (auto) 7.5 % (0.0-12.0); Neutrophils % (auto) 75.5 % (37.0-80.0); Nucleated Red Blood Cells % 0.1 %; Red Blood Cells 2.86 10^6/uL (4.0-5.20)
[2021-05-07 13:00] VITALS: BP 119/73
[2021-05-07] MEDS: SODIUM FERR GLUC 62.5MG/5ML 125 MG in SODIUM CHL 0.9% 100 ML IV SCH (13:09)
[2021-05-07] MEDS ORDERED: HYDROcodone-ACET 5/325MG TAB PO PRN (16:00)
[2021-05-07] MEDS ORDERED: HYDROmorphone HCL 2 MG/ML VL IV PRN (16:00)
[2021-05-07 17:00] VITALS: BP 120/61
[2021-05-07] MEDS: LINEZOLID 600MG TABLET PO SCH (22:13)
[2021-05-07 22:51] VITALS: BP 138/63
[2021-05-08 05:52] VITALS: BP 129/53
[2021-05-08 08:00] VITALS: BP 121/57
[2021-05-08 09:00] VITALS: BP 118/57
[2021-05-08] MEDS: ENOXAPARIN SOD 40 MG/0.4 ML SYRINGE SC SCH (10:00)
[2021-05-08] MEDS: LINEZOLID 600MG TABLET PO SCH ×2 (10:00→21:45)
[2021-05-08] MEDS: SODIUM CHLOR 0.9% PF (SALINE LOCK) 10ML VIAL/SYR IV SCH ×2 (10:00→21:45)
[2021-05-08] MEDS: ATENOLOL 25 MG TAB PO SCH ×2 (10:00→21:44)
[2021-05-08] MEDS: SODIUM FERR GLUC 62.5MG/5ML 125 MG in SODIUM CHL 0.9% 100 ML IV SCH (12:00)
[2021-05-08 13:00] VITALS: BP 121/57
[2021-05-08 16:56] VITALS: BP 124/52
[2021-05-08 22:07] VITALS: BP 120/56
[2021-05-09 05:00] VITALS: BP 121/56
[2021-05-09 09:00] VITALS: BP 123/68
[2021-05-09] MEDS: ENOXAPARIN SOD 40 MG/0.4 ML SYRINGE SC SCH (10:18)
[2021-05-09] MEDS: LINEZOLID 600MG TABLET PO SCH ×2 (10:18→22:59)
[2021-05-09] MEDS: SODIUM CHLOR 0.9% PF (SALINE LOCK) 10ML VIAL/SYR IV SCH ×2 (10:18→22:58)
[2021-05-09] MEDS: ATENOLOL 25 MG TAB PO SCH ×2 (10:19→23:00)
[2021-05-09] MEDS ORDERED: FLORASTOR (S. BOULARDII) 250 MG CAP PO ONE (12:30)
[2021-05-09] MEDS: SODIUM FERR GLUC 62.5MG/5ML 125 MG in SODIUM CHL 0.9% 100 ML IV SCH (12:40)
[2021-05-09 13:00] VITALS: BP 142/66
[2021-05-09 17:00] VITALS: BP 114/52
[2021-05-09 22:00] VITALS: BP 91/55
[2021-05-10 05:08] VITALS: BP 90/40
[2021-05-10 06:47] LABS: Basophils # (auto) 0.1 10 ^3/uL (0-0.2); Eosinophils # (auto) 0.1 10 ^3/uL (0-0.8); Eosinophils % (auto) 1.2 % (0.0-7.0); Hemoglobin 7.6 g/dL (12.2-16.2); Lymphocytes # (auto) 0.8 10 ^3/uL (0.4-5.4); Lymphocytes % (auto) 13.9 % (10.0-50.0); Mean Corpuscular Hgb Conc. 33.5 g/dL (32.0-36.0); Neutrophils # (auto) 4.2 10 ^3/uL (1.6-8.6); Red Blood Cells 2.66 10^6/uL (4.0-5.20)
[2021-05-10 06:49] LABS: Hematocrit 22.7 % (36.0-46.0); Mean Corpuscular Hemoglobin 28.6 pg (28.0-32.0); Mean Corpuscular Volume 85.4 fL (80.0-100.0); Monocytes # (auto) 0.6 10 ^3/uL (0-1.3); Monocytes % (auto) 10.6 % (0.0-12.0); Neutrophils % (auto) 73.3 % (37.0-80.0); Red Cell Distribution Width 18.3 % (11.8-14.3); White Blood Cell 5.8 10^3/uL (4.4-10.8)
[2021-05-10 06:59] LABS: Albumin 2.2 g/dL (3.4-5.0); Calcium 8.5 mg/dL (8.5-10.1); Potassium 3.9 mmol/L (3.5-5.1)
[2021-05-10 07:04] LABS: % Iron Saturation 91.9 % (15-50)
[2021-05-10 07:08] LABS: BUN/Creatinine Ratio 16.7; Bilirubin, Total 0.5 mg/dL (0.2-1.0); CRP High Sensitivity 1.72 mg/dL (< 0.3); Total Protein 5.8 g/dL (6.4-8.2)
[2021-05-10 07:21] LABS: Thyroid Stimulating Hormone 1.15 uIU/mL (0.358-3.74)
[2021-05-10 08:12] LABS: Ferritin 748.1 ng/mL (10-322)
[2021-05-10 09:01] VITALS: BP 104/51
[2021-05-10] MEDS: SODIUM CHLOR 0.9% PF (SALINE LOCK) 10ML VIAL/SYR IV SCH ×2 (10:04→22:03)
[2021-05-10] MEDS: ATENOLOL 25 MG TAB PO SCH ×2 (10:04→22:00)
[2021-05-10] MEDS: FLORASTOR (S. BOULARDII) 250 MG CAP PO SCH (10:04)
[2021-05-10] MEDS: LINEZOLID 600MG TABLET PO SCH ×2 (10:05→22:03)
[2021-05-10] MEDS: SODIUM FERR GLUC 62.5MG/5ML 125 MG in SODIUM CHL 0.9% 100 ML IV SCH ×2 (12:20→15:37)
[2021-05-10 13:00] VITALS: BP 92/46
[2021-05-10 16:58] VITALS: BP 101/50
[2021-05-10 22:00] VITALS: BP 97/60
[2021-05-11 05:00] VITALS: BP 91/56
[2021-05-11 09:00] VITALS: BP 107/49
[2021-05-11] MEDS: SODIUM CHLOR 0.9% PF (SALINE LOCK) 10ML VIAL/SYR IV SCH (09:45)
[2021-05-11] MEDS: LINEZOLID 600MG TABLET PO SCH (09:45)
[2021-05-11] MEDS: FLORASTOR (S. BOULARDII) 250 MG CAP PO SCH (09:45)
[2021-05-11] MEDS: ATENOLOL 25 MG TAB PO SCH (10:00)
[2021-05-11 13:00] VITALS: BP 103/56
[2021-05-11 13:31] LABS: Folate (Folic Acid) 10.28 ng/mL (5.38-24)
[2021-05-11 13:40] LABS: Free T4 (Free Thyroxine) 1.47 ng/dL (0.89-1.76)
[2021-05-11 17:00] VITALS: BP 100/59
[2021-05-11] MEDS: Pro-Stat SF 30ml Vanilla PO SCH (19:19)
[2021-05-11 22:00] VITALS: BP 106/58
[2021-05-12] VITALS (10 sets, daily range): BP systolic 93–105; BP diastolic 51–60
[2021-05-12] MEDS: SODIUM CHLOR 0.9% PF (SALINE LOCK) 10ML VIAL/SYR IV SCH ×3 (03:28→22:06)
[2021-05-12 06:30] LABS: Eosinophils # (auto) 0.1 10 ^3/uL (0-0.8); Lymphocytes # (auto) 0.9 10 ^3/uL (0.4-5.4); Monocytes # (auto) 0.6 10 ^3/uL (0-1.3); Nucleated Red Blood Cells % 0.1 %
[2021-05-12 06:33] LABS: Basophils # (auto) 0.1 10 ^3/uL (0-0.2); Basophils % (auto) 1.1 % (0.0-2.0); Eosinophils % (auto) 2.3 % (0.0-7.0); Hematocrit 21.2 % (36.0-46.0); Hemoglobin 7.2 g/dL (12.2-16.2); Lymphocytes % (auto) 20.2 % (10.0-50.0); Mean Corpuscular Hgb Conc. 33.9 g/dL (32.0-36.0); Mean Corpuscular Volume 85.3 fL (80.0-100.0); Neutrophils % (auto) 64.4 % (37.0-80.0); Red Blood Cells 2.48 10^6/uL (4.0-5.20); Red Cell Distribution Width 18.5 % (11.8-14.3); White Blood Cell 4.6 10^3/uL (4.4-10.8)
[2021-05-12] MEDS: Pro-Stat SF 30ml Vanilla PO SCH ×2 (10:21→19:44)
[2021-05-12] MEDS: FLORASTOR (S. BOULARDII) 250 MG CAP PO SCH (10:21)
[2021-05-12] MEDS: ATENOLOL 25 MG TAB PO SCH (10:21)
[2021-05-13 05:17] VITALS: BP 100/52
[2021-05-13 08:00] VITALS: BP 101/56
[2021-05-13] MEDS: Pro-Stat SF 30ml Vanilla PO SCH ×2 (08:00→17:55)
[2021-05-13 08:24] LABS: Hematocrit 27.2 % (36.0-46.0); Hemoglobin 9.1 g/dL (12.2-16.2)
[2021-05-13 09:00] VITALS: BP 101/56
[2021-05-13] MEDS: FLORASTOR (S. BOULARDII) 250 MG CAP PO SCH (09:52)
[2021-05-13] MEDS: ATENOLOL 25 MG TAB PO SCH (09:52)
[2021-05-13] MEDS: SODIUM CHLOR 0.9% PF (SALINE LOCK) 10ML VIAL/SYR IV SCH ×2 (09:54→21:50)
[2021-05-13 13:00] VITALS: BP 101/54
[2021-05-13 17:00] VITALS: BP 102/51
[2021-05-13 22:00] VITALS: BP 110/56
[2021-05-14 05:00] VITALS: BP 112/55
[2021-05-14] MEDS: Pro-Stat SF 30ml Vanilla PO SCH ×2 (08:00→18:00)
[2021-05-14 08:35] VITALS: BP 104/56
[2021-05-14] MEDS: FLORASTOR (S. BOULARDII) 250 MG CAP PO SCH (10:59)
[2021-05-14] MEDS: SODIUM CHLOR 0.9% PF (SALINE LOCK) 10ML VIAL/SYR IV SCH ×2 (10:59→22:00)
[2021-05-14] MEDS: ATENOLOL 25 MG TAB PO SCH (11:02)
[2021-05-14 12:34] VITALS: BP 108/53
[2021-05-14 16:56] VITALS: BP 98/47
[2021-05-14 22:00] VITALS: BP 98/47
[2021-05-15 05:00] VITALS: BP 101/57
[2021-05-15 05:58] LABS: Basophils # (auto) 0.1 10 ^3/uL (0-0.2); Basophils % (auto) 0.7 % (0.0-2.0); Eosinophils # (auto) 0.2 10 ^3/uL (0-0.8); Eosinophils % (auto) 2.8 % (0.0-7.0); Hematocrit 24.1 % (36.0-46.0); Hemoglobin 8.3 g/dL (12.2-16.2); Lymphocytes # (auto) 0.9 10 ^3/uL (0.4-5.4); Lymphocytes % (auto) 11.8 % (10.0-50.0); Mean Corpuscular Hemoglobin 29.5 pg (28.0-32.0); Mean Corpuscular Hgb Conc. 34.6 g/dL (32.0-36.0); Mean Corpuscular Volume 85.2 fL (80.0-100.0); Monocytes # (auto) 1.1 10 ^3/uL (0-1.3); Monocytes % (auto) 14.2 % (0.0-12.0); Neutrophils # (auto) 5.4 10 ^3/uL (1.6-8.6); Neutrophils % (auto) 70.5 % (37.0-80.0); Nucleated Red Blood Cells % 0.1 %; Red Blood Cells 2.83 10^6/uL (4.0-5.20); Red Cell Distribution Width 17.8 % (11.8-14.3); White Blood Cell 7.6 10^3/uL (4.4-10.8)
[2021-05-15 06:24] LABS: BUN/Creatinine Ratio 17.6; Calcium 8.6 mg/dL (8.5-10.1); Magnesium 1.6 mg/dL (1.6-2.6); Potassium 4.1 mmol/L (3.5-5.1)
[2021-05-15 08:20] VITALS: BP 108/55
[2021-05-15] MEDS: ATENOLOL 25 MG TAB PO SCH (10:00)
[2021-05-15] MEDS: FLORASTOR (S. BOULARDII) 250 MG CAP PO SCH (10:28)
[2021-05-15] MEDS: Pro-Stat SF 30ml Vanilla PO SCH (10:42)
[2021-05-15] MEDS: SODIUM CHLOR 0.9% PF (SALINE LOCK) 10ML VIAL/SYR IV SCH (10:42)
[2021-05-15] MEDS ORDERED: FER325T PO (10:44)
[2021-05-15] MEDS ORDERED: TRAM50TA2 PO (10:44)
[2021-05-15] MEDS ORDERED: LINE1TAB5 GT (10:44)
[2021-05-15] MEDS ORDERED: SACC250C PO (11:14)
[2021-05-15] MEDS ORDERED: CEFU500T43 PO (11:14)
[2021-05-15] MEDS ORDERED: LINEZOLID 600MG TABLET PO ONE (11:15)
[2021-05-15] MEDS ORDERED: CEFUROXIME 250 MG TAB PO ONE (11:15)
[2021-05-15 12:15] VITALS: BP 100/54
[2021-05-15 13:45] VITALS: BP 100/48
[2021-05-15 16:25] VITALS: BP 105/61
== END 2021-05-15 18:50 | disposition home health service (06) | DRG 853 ==
LOC: ER 19:30 → OVERFLOW 04-21 02:52 → WEST WING 04-21 08:51 → TELE-WESTW 04-22 00:29 → WEST WING 05-07 10:14
PROVIDERS: ADMIT Nurse Practitioner; ATTEND Internal Medicine
PROC: 0TJB8ZZ Inspection of Bladder, Via Natural or Artificial Opening Endoscopic (ICD-10-PCS; principal; 2021-04-23 14:45)
PROC: 02HV33Z Insertion of Infusion Device into Superior Vena Cava, Percutaneous Approach (ICD-10-PCS; 2021-04-24)
PROC: 0D1N0ZP Bypass Sigmoid Colon to Rectum, Open Approach (ICD-10-PCS; 2021-04-27)
PROC: 02HV33Z Insertion of Infusion Device into Superior Vena Cava, Percutaneous Approach (ICD-10-PCS; 2021-04-30)
PROC: 05PYX3Z Removal of Infusion Device from Upper Vein, External Approach (ICD-10-PCS; 2021-04-30)
PROC: 30233N1 Transfusion of Nonautologous Red Blood Cells into Peripheral Vein, Percutaneous Approach (ICD-10-PCS; 2021-05-12)
DX: A41.9 Sepsis, unspecified organism (principal); E43 Unspecified severe protein-calorie malnutrition; L02.211 Cutaneous abscess of abdominal wall; N32.1 Vesicointestinal fistula; K56.609 Unspecified intestinal obstruction, unspecified as to partial versus complete obstruction; K57.92 Diverticulitis of intestine, part unspecified, without perforation or abscess without bleeding; N12 Tubulo-interstitial nephritis, not specified as acute or chronic; Z16.23 Resistance to quinolones and fluoroquinolones; N81.10 Cystocele, unspecified; E78.5 Hyperlipidemia, unspecified; E87.6 Hypokalemia; I10 Essential (primary) hypertension; E87.5 Hyperkalemia; Z68.25 Body mass index [BMI] 25.0-25.9, adult; Z20.822 Contact with and (suspected) exposure to COVID-19; B96.20 Unspecified Escherichia coli [E. coli] as the cause of diseases classified elsewhere; E61.1 Iron deficiency; Z85.819 Personal history of malignant neoplasm of unspecified site of lip, oral cavity, and pharynx
CPT/HCPCS: 36415; 36569; 71045; 72192; 74018; 74176; 74177; 74250; 76775; 80048; 80053; 80069; 80076; 81001; 82040; 82533; 82607; 82668; 82728; 82746; 82962; 83010; 83540; 83550; 83605; 83615; 83735; 84100; 84439; 84443; 84478; 85014; 85018; 85025; 85045; 85610; 85652; 85730; 86141; 86850; 86880; 86900; 86901; 86920; 87040; 87070; 87075; 87077; 87086; 87088; 87186; 87205; 93005; 93306; 93971; 96361; 96365; 97110; 97116; 97163; 97530; G0378; J0696; J1815; J2001; J2185; J2250; J2405; J2704; J3480; J3490; J7042; J7060; J7131; P9047

== ENCOUNTER 2021-06-09 10:35 | Inpatient (IN) | payer BC ==
[~2021-06-09] VITALS: Ht 152.4 cm; Wt 52.5 kg
[2021-06-09] VITALS (8 sets, daily range): BP systolic 100–121; BP diastolic 44–55
[~2021-06-09 10:35] MED LIST: ASPI-543 PO; ATEN-60 PO; CEFU500T43 PO; FER325T PO; LINE1TAB5 GT; SACC250C PO; SIMV-8 PO; TRAM50TA2 PO
[2021-06-09] MEDS ORDERED: SODIUM CHLORIDE 0.9% 1,000 ML IVB ONE (11:15)
[2021-06-09 11:39] LABS: Basophils # (auto) 0 10 ^3/uL (0-0.2); Eosinophils # (auto) 0 10 ^3/uL (0-0.8); Eosinophils % (auto) 0.1 % (0.0-7.0); Hemoglobin 10.8 g/dL (12.2-16.2); Lymphocytes # (auto) 0.6 10 ^3/uL (0.4-5.4); Lymphocytes % (auto) 2.9 % (10.0-50.0)
[2021-06-09 11:40] LABS: Basophils % (auto) 0.2 % (0.0-2.0); Hematocrit 33.7 % (36.0-46.0); Mean Corpuscular Hemoglobin 27.8 pg (28.0-32.0); Mean Corpuscular Volume 86.7 fL (80.0-100.0); Monocytes # (auto) 1.3 10 ^3/uL (0-1.3); Monocytes % (auto) 7.1 % (0.0-12.0); Neutrophils # (auto) 16.9 10 ^3/uL (1.6-8.6); Neutrophils % (auto) 89.7 % (37.0-80.0); Red Blood Cells 3.88 10^6/uL (4.0-5.20); Red Cell Distribution Width 18.5 % (11.8-14.3); White Blood Cell 18.9 10^3/uL (4.4-10.8)
[2021-06-09 11:59] LABS: Albumin 2.3 g/dL (3.4-5.0); BUN/Creatinine Ratio 31.1; Calcium 9.3 mg/dL (8.5-10.1); Potassium 3.6 mmol/L (3.5-5.1)
[2021-06-09 12:02] LABS: Bilirubin, Total 0.8 mg/dL (0.2-1.0)
[2021-06-09] MEDS ORDERED: MORPHINE SULFATE INJ 2 MG/ml SYRG IV PRN ×2 (13:30→16:00)
[2021-06-09] MEDS ORDERED: NITROGLYCERIN 0.4 MG SL TAB SL PRN (13:30)
[2021-06-09] MEDS ORDERED: SODIUM CHLORIDE 0.9% 1,000 ML IV SCH (14:15)
[2021-06-09 14:27] LABS: Urine Bacteria MANY /hpf (None Seen); Urine Blood 1+ /uL (Negative); Urine Mucus FEW (None Seen); Urine Specific Gravity 1.022 (1.001-1.035); Urine WBC 293 /hpf (0 - 5); Urine WBC Clumps PRESENT /hpf (None Seen)
[2021-06-09] MEDS ORDERED: OMNIPAQUE ORAL SOLN 500ml 12mg/ml PO ONE (14:40)
[2021-06-09] MEDS ORDERED: HYDROcodone-ACET 5/325MG TAB PO PRN (16:00)
[2021-06-09] MEDS ORDERED: LACTATED RINGER'S 1,000 ML IV ONE (16:00)
[2021-06-09] MEDS ORDERED: LORazepam 0.5 MG TAB PO PRN (16:00)
[2021-06-09] MEDS: SODIUM CHLORIDE 0.9% 1,000 ML IV SCH ×2 (16:00→16:37)
[2021-06-09] MEDS ORDERED: hydrALAZINE HCL 20 MG/ML VL IV PRN (16:00)
[2021-06-09] MEDS ORDERED: ONDANSETRON HCL 4 MG/2 ML VIAL IV PRN (16:00)
[2021-06-09] MEDS ORDERED: DOCUSATE SOD 100 MG CAP PO PRN (16:00)
[2021-06-09] MEDS ORDERED: LORazepam 2MG/ML-1ML VIAL IV PRN (16:00)
[2021-06-09] MEDS: PIPERACILLIN-TAZOB 3.375GM 100 ML IV SCH ×2 (16:44→22:28)
[2021-06-09] MEDS: NOREPINEPHRINE 8 MG/250ML KIT 250 ML IV SCH (17:01)
[2021-06-09 17:43] LABS: INR 1.24 (0.9-1.15); Partial Thromboplastin Time 40.1 sec (23.6-33.0)
[2021-06-09 17:46] LABS: Phosphorus 3.2 mg/dL (2.5-4.90)
[2021-06-09] MEDS: LINEZOLID 600MG/300ML 300 ML IV SCH (22:00)
[2021-06-10] VITALS (94 sets, daily range): BP systolic 79–123; BP diastolic 36–69
[2021-06-10] MEDS: PIPERACILLIN-TAZOB 3.375GM 100 ML IV SCH ×2 (03:21→11:15)
[2021-06-10 04:03] LABS: Basophils # (auto) 0 10 ^3/uL (0-0.2); Basophils % (auto) 0.2 % (0.0-2.0); Eosinophils # (auto) 0.1 10 ^3/uL (0-0.8); Eosinophils % (auto) 0.3 % (0.0-7.0); Hematocrit 27.8 % (36.0-46.0); Lymphocytes # (auto) 0.6 10 ^3/uL (0.4-5.4); Lymphocytes % (auto) 3.2 % (10.0-50.0); Mean Corpuscular Hemoglobin 28.2 pg (28.0-32.0); Mean Corpuscular Hgb Conc. 32.2 g/dL (32.0-36.0); Mean Corpuscular Volume 87.4 fL (80.0-100.0); Monocytes # (auto) 1.5 10 ^3/uL (0-1.3); Monocytes % (auto) 7.6 % (0.0-12.0); Neutrophils # (auto) 17.1 10 ^3/uL (1.6-8.6); Neutrophils % (auto) 88.7 % (37.0-80.0); Red Blood Cells 3.18 10^6/uL (4.0-5.20); White Blood Cell 19.3 10^3/uL (4.4-10.8)
[2021-06-10 04:23] LABS: Albumin 1.7 g/dL (3.4-5.0); Calcium 7.9 mg/dL (8.5-10.1); Magnesium 1.7 mg/dL (1.6-2.6)
[2021-06-10 04:26] LABS: INR 1.32 (0.9-1.15)
[2021-06-10 04:33] LABS: BUN/Creatinine Ratio 27.9; Bilirubin, Total 0.8 mg/dL (0.2-1.0); Phosphorus 2.9 mg/dL (2.5-4.90); Total Protein 5.4 g/dL (6.4-8.2)
[2021-06-10 04:39] LABS: Potassium 2.9 mmol/L (3.5-5.1)
[2021-06-10] MEDS ORDERED: POTASSIUM CHL 20MEQ/100ML 100 ML IV ONE ×2 (06:30→10:45)
[2021-06-10] MEDS: SODIUM CHLORIDE 0.9% 1,000 ML IV SCH (07:00)
[2021-06-10] MEDS ORDERED: TPN PER PHARMACY 0 ML IV SCH (10:00)
[2021-06-10] MEDS ORDERED: FAMOTIDINE (10MG/ML) 2ML VL IV SCH (10:00)
[2021-06-10] MEDS: FLORASTOR (S. BOULARDII) 250 MG CAP PO SCH (11:15)
[2021-06-10] MEDS: ENOXAPARIN SOD 40 MG/0.4 ML SYRINGE SC SCH (11:15)
[2021-06-10] MEDS ORDERED: MICAFUNGIN SODIUM 100 MG in SODIUM CHL 0.9% 100 ML IV ONE (11:15)
[2021-06-10] MEDS ORDERED: MEROPENEM 1GM IVPB 100 ML IV ONE (13:30)
[2021-06-10] MEDS ORDERED: LIDOCAINE 1% (LOCAL ANESTH.) PF 5ml SDV ID ONE (13:45)
[2021-06-10] MEDS: LINEZOLID 600MG/300ML 300 ML IV SCH ×2 (15:28→21:02)
[2021-06-10] MEDS: MAGNESIUM SULFATE 1GM/100ML 100 ML IV SCH ×2 (15:41→16:30)
[2021-06-10] MEDS: POTASSIUM CHL 20MEQ/100ML 100 ML IV SCH ×2 (15:59→18:04)
[2021-06-10] MEDS: NOREPINEPHRINE 8 MG/250ML KIT 250 ML IV SCH (16:00)
[2021-06-10] MEDS ORDERED: PPN PER PHARMACY IV NR ×8 (20:00)
[2021-06-10] MEDS: MEROPENEM 1GM IVPB 100 ML IV SCH (21:02)
[2021-06-10] MEDS: SODIUM CHLOR 0.9% PF (SALINE LOCK) 10ML VIAL/SYR IV SCH (21:02)
[2021-06-11] VITALS (63 sets, daily range): BP systolic 85–124; BP diastolic 47–71
[2021-06-11] MEDS ORDERED: DEXTROSE (50%) 50ML SYRG IV SCH
[2021-06-11] MEDS: InsuLIN REG 1unit/0.01ml Soln (100units/ml) SC SCH ×5 (01:21→23:56)
[2021-06-11] MEDS: ACCU-CHEK COMFORT CURVE STRIP VI SCH ×4 (01:21→18:15)
[2021-06-11 04:03] LABS: Basophils # (auto) 0.1 10 ^3/uL (0-0.2); Basophils % (auto) 0.5 % (0.0-2.0); Eosinophils # (auto) 0.3 10 ^3/uL (0-0.8); Eosinophils % (auto) 1.6 % (0.0-7.0); Hematocrit 30.2 % (36.0-46.0); Hemoglobin 9.8 g/dL (12.2-16.2); Lymphocytes % (auto) 6.1 % (10.0-50.0); Mean Corpuscular Hemoglobin 28.7 pg (28.0-32.0); Mean Corpuscular Hgb Conc. 32.3 g/dL (32.0-36.0); Mean Corpuscular Volume 88.7 fL (80.0-100.0); Monocytes # (auto) 1.2 10 ^3/uL (0-1.3); Monocytes % (auto) 7.5 % (0.0-12.0); Neutrophils # (auto) 13.1 10 ^3/uL (1.6-8.6); Neutrophils % (auto) 84.3 % (37.0-80.0); Red Blood Cells 3.41 10^6/uL (4.0-5.20); Red Cell Distribution Width 18.2 % (11.8-14.3); White Blood Cell 15.6 10^3/uL (4.4-10.8)
[2021-06-11 04:26] LABS: Albumin 1.6 g/dL (3.4-5.0); Calcium 7.6 mg/dL (8.5-10.1); Magnesium 2.2 mg/dL (1.6-2.6); Potassium 3.4 mmol/L (3.5-5.1)
[2021-06-11 04:31] LABS: Bilirubin, Total 0.4 mg/dL (0.2-1.0); Phosphorus 2.7 mg/dL (2.5-4.90); Total Protein 5.3 g/dL (6.4-8.2)
[2021-06-11] MEDS: MEROPENEM 1GM IVPB 100 ML IV SCH ×3 (06:19→22:00)
[2021-06-11] MEDS ORDERED: POTASSIUM PHOSPHATE 26.4 MEQ in SODIUM CHL 0.9% 100 ML IV ONE (09:45)
[2021-06-11] MEDS: FLORASTOR (S. BOULARDII) 250 MG CAP PO SCH (10:00)
[2021-06-11] MEDS: ENOXAPARIN SOD 40 MG/0.4 ML SYRINGE SC SCH (10:36)
[2021-06-11] MEDS: SODIUM CHLOR 0.9% PF (SALINE LOCK) 10ML VIAL/SYR IV SCH ×2 (10:36→22:00)
[2021-06-11] MEDS: LINEZOLID 600MG/300ML 300 ML IV SCH ×2 (10:37→22:39)
[2021-06-11] MEDS: MICAFUNGIN SODIUM 100 MG in SODIUM CHL 0.9% 100 ML IV SCH (12:48)
[2021-06-11] MEDS: NOREPINEPHRINE 8 MG/250ML KIT 250 ML IV SCH (16:00)
[2021-06-11] MEDS: SODIUM CHLORIDE 0.9% 1,000 ML IV SCH (18:00)
[2021-06-11] MEDS: VANCOMYCIN HCL 125MG/5ML ORAL SOL PO SCH ×2 (18:17→23:56)
[2021-06-11] MEDS ORDERED: TPN PER PHARMACY IV NR ×9 (20:00)
[2021-06-11] MEDS: metroNIDAZOLE 500MG/100ML 100 ML IV SCH (22:39)
[2021-06-12] VITALS (22 sets, daily range): BP systolic 106–124; BP diastolic 58–69
[2021-06-12 04:50] LABS: Basophils # (auto) 0 10 ^3/uL (0-0.2); Basophils % (auto) 0.6 % (0.0-2.0); Eosinophils # (auto) 0.2 10 ^3/uL (0-0.8); Eosinophils % (auto) 2.2 % (0.0-7.0); Hematocrit 28.4 % (36.0-46.0); Hemoglobin 9.7 g/dL (12.2-16.2); Lymphocytes # (auto) 0.8 10 ^3/uL (0.4-5.4); Lymphocytes % (auto) 10.5 % (10.0-50.0); Mean Corpuscular Hemoglobin 29.3 pg (28.0-32.0); Mean Corpuscular Volume 86.2 fL (80.0-100.0); Monocytes # (auto) 0.6 10 ^3/uL (0-1.3); Monocytes % (auto) 7.6 % (0.0-12.0); Neutrophils # (auto) 6.1 10 ^3/uL (1.6-8.6); Neutrophils % (auto) 79.1 % (37.0-80.0); Nucleated Red Blood Cells % 0.1 %; White Blood Cell 7.8 10^3/uL (4.4-10.8)
[2021-06-12 05:07] LABS: Albumin 1.6 g/dL (3.4-5.0); Calcium 7.7 mg/dL (8.5-10.1); Magnesium 2.2 mg/dL (1.6-2.6); Potassium 3.2 mmol/L (3.5-5.1)
[2021-06-12 05:10] LABS: BUN/Creatinine Ratio 28.9
[2021-06-12 05:13] LABS: Bilirubin, Total 0.2 mg/dL (0.2-1.0); Phosphorus 2.6 mg/dL (2.5-4.90); Total Protein 5.1 g/dL (6.4-8.2)
[2021-06-12] MEDS: metroNIDAZOLE 500MG/100ML 100 ML IV SCH ×3 (05:36→21:58)
[2021-06-12] MEDS: MEROPENEM 1GM IVPB 100 ML IV SCH ×3 (05:37→22:46)
[2021-06-12] MEDS: ACCU-CHEK COMFORT CURVE STRIP VI SCH ×5 (05:38→23:35)
[2021-06-12] MEDS: InsuLIN REG 1unit/0.01ml Soln (100units/ml) SC SCH ×4 (05:38→23:29)
[2021-06-12] MEDS: VANCOMYCIN HCL 125MG/5ML ORAL SOL PO SCH ×4 (05:46→23:36)
[2021-06-12] MEDS: FLORASTOR (S. BOULARDII) 250 MG CAP PO SCH (10:20)
[2021-06-12] MEDS: LINEZOLID 600MG/300ML 300 ML IV SCH ×2 (10:20→21:58)
[2021-06-12] MEDS: SODIUM CHLOR 0.9% PF (SALINE LOCK) 10ML VIAL/SYR IV SCH ×2 (10:20→21:58)
[2021-06-12] MEDS: ENOXAPARIN SOD 40 MG/0.4 ML SYRINGE SC SCH (10:20)
[2021-06-12] MEDS: SODIUM CHLORIDE 0.9% 1,000 ML IV SCH ×2 (10:31→21:21)
[2021-06-12] MEDS ORDERED: POTASSIUM CHL 20MEQ/100ML 100 ML IV ONE (12:45)
[2021-06-12] MEDS: MICAFUNGIN SODIUM 100 MG in SODIUM CHL 0.9% 100 ML IV SCH (12:48)
[2021-06-12] MEDS ORDERED: POTASSIUM PHOSP 26.4MEQ(18MMOL) IN NS 100 ML IV ONE (15:00)
[2021-06-12] MEDS ORDERED: TPN PER PHARMACY IV NR ×9 (20:00)
[2021-06-13] VITALS (20 sets, daily range): BP systolic 110–125; BP diastolic 55–71
[2021-06-13] MEDS ORDERED: MEROPENEM 1GM IVPB 100 ML IV SCH (02:00)
[2021-06-13 04:44] LABS: Basophils # (auto) 0 10 ^3/uL (0-0.2); Basophils % (auto) 0.8 % (0.0-2.0); Eosinophils # (auto) 0.2 10 ^3/uL (0-0.8); Hemoglobin 9.6 g/dL (12.2-16.2); Lymphocytes % (auto) 18.5 % (10.0-50.0); Mean Corpuscular Hemoglobin 28.7 pg (28.0-32.0); Mean Corpuscular Hgb Conc. 32.9 g/dL (32.0-36.0); Mean Corpuscular Volume 87.2 fL (80.0-100.0); Monocytes # (auto) 0.6 10 ^3/uL (0-1.3); Monocytes % (auto) 10.7 % (0.0-12.0); Neutrophils # (auto) 3.8 10 ^3/uL (1.6-8.6); Nucleated Red Blood Cells % 0.1 %; Red Blood Cells 3.33 10^6/uL (4.0-5.20); White Blood Cell 5.6 10^3/uL (4.4-10.8)
[2021-06-13 05:01] LABS: Albumin 1.6 g/dL (3.4-5.0); BUN/Creatinine Ratio 28.1; Calcium 7.6 mg/dL (8.5-10.1); Magnesium 1.8 mg/dL (1.6-2.6); Phosphorus 2.6 mg/dL (2.5-4.90); Potassium 3.6 mmol/L (3.5-5.1)
[2021-06-13] MEDS: MEROPENEM 1GM IVPB 100 ML IV SCH ×2 (05:33→13:46)
[2021-06-13] MEDS: metroNIDAZOLE 500MG/100ML 100 ML IV SCH ×3 (05:33→21:19)
[2021-06-13] MEDS: ACCU-CHEK COMFORT CURVE STRIP VI SCH ×3 (05:34→17:54)
[2021-06-13] MEDS: VANCOMYCIN HCL 125MG/5ML ORAL SOL PO SCH ×3 (05:34→17:54)
[2021-06-13] MEDS: InsuLIN REG 1unit/0.01ml Soln (100units/ml) SC SCH ×3 (05:34→17:54)
[2021-06-13] MEDS: SODIUM CHLOR 0.9% PF (SALINE LOCK) 10ML VIAL/SYR IV SCH ×2 (09:55→22:31)
[2021-06-13] MEDS: ENOXAPARIN SOD 40 MG/0.4 ML SYRINGE SC SCH (09:56)
[2021-06-13] MEDS: LINEZOLID 600MG/300ML 300 ML IV SCH ×2 (09:56→22:31)
[2021-06-13] MEDS: FLORASTOR (S. BOULARDII) 250 MG CAP PO SCH (09:56)
[2021-06-13] MEDS ORDERED: POTASSIUM PHOSP 22MEQ(15MMOLE) in NS 100 ML IV ONE (10:00)
[2021-06-13] MEDS: MICAFUNGIN SODIUM 100 MG in SODIUM CHL 0.9% 100 ML IV SCH (12:01)
[2021-06-13] MEDS: SODIUM CHLORIDE 0.9% 1,000 ML IV SCH (20:00)
[2021-06-13] MEDS ORDERED: TPN PER PHARMACY IV NR ×10 (20:00)
[2021-06-14] VITALS (8 sets, daily range): BP systolic 102–119; BP diastolic 60–69
[2021-06-14] MEDS: VANCOMYCIN HCL 125MG/5ML ORAL SOL PO SCH ×5 (00:35→23:04)
[2021-06-14] MEDS: MEROPENEM 1GM IVPB 100 ML IV SCH ×2 (00:36→10:20)
[2021-06-14] MEDS: ACCU-CHEK COMFORT CURVE STRIP VI SCH ×4 (00:36→18:17)
[2021-06-14 05:34] LABS: Basophils # (auto) 0.1 10 ^3/uL (0-0.2); Basophils % (auto) 0.8 % (0.0-2.0); Eosinophils # (auto) 0.2 10 ^3/uL (0-0.8); Eosinophils % (auto) 2.8 % (0.0-7.0); Hemoglobin 9.7 g/dL (12.2-16.2); Lymphocytes # (auto) 1.2 10 ^3/uL (0.4-5.4); Lymphocytes % (auto) 18.4 % (10.0-50.0); Mean Corpuscular Hemoglobin 28.8 pg (28.0-32.0); Mean Corpuscular Hgb Conc. 33.4 g/dL (32.0-36.0); Mean Corpuscular Volume 86.3 fL (80.0-100.0); Monocytes # (auto) 0.5 10 ^3/uL (0-1.3); Monocytes % (auto) 8.2 % (0.0-12.0); Neutrophils # (auto) 4.4 10 ^3/uL (1.6-8.6); Neutrophils % (auto) 69.8 % (37.0-80.0); Red Blood Cells 3.36 10^6/uL (4.0-5.20); Red Cell Distribution Width 18.2 % (11.8-14.3); White Blood Cell 6.4 10^3/uL (4.4-10.8)
[2021-06-14 05:58] LABS: Albumin 1.7 g/dL (3.4-5.0); BUN/Creatinine Ratio 33.3; Bilirubin, Total 0.2 mg/dL (0.2-1.0); Calcium 7.8 mg/dL (8.5-10.1); Phosphorus 2.2 mg/dL (2.5-4.90); Total Protein 5.4 g/dL (6.4-8.2)
[2021-06-14] MEDS: metroNIDAZOLE 500MG/100ML 100 ML IV SCH ×3 (06:00→21:02)
[2021-06-14] MEDS: InsuLIN REG 1unit/0.01ml Soln (100units/ml) SC SCH ×4 (06:00→18:00)
[2021-06-14] MEDS ORDERED: SODIUM PHOSPHATES 24 MEQ in SODIUM CHL 0.9% 100 ML IV ONE (09:15)
[2021-06-14] MEDS: FLORASTOR (S. BOULARDII) 250 MG CAP PO SCH (10:00)
[2021-06-14] MEDS: LINEZOLID 600MG/300ML 300 ML IV SCH ×2 (10:20→23:03)
[2021-06-14] MEDS: ENOXAPARIN SOD 40 MG/0.4 ML SYRINGE SC SCH ×2 (10:21→23:04)
[2021-06-14] MEDS: SODIUM CHLOR 0.9% PF (SALINE LOCK) 10ML VIAL/SYR IV SCH ×2 (10:36→23:02)
[2021-06-14] MEDS: MICAFUNGIN SODIUM 100 MG in SODIUM CHL 0.9% 100 ML IV SCH (12:42)
[2021-06-14] MEDS ORDERED: TPN PER PHARMACY IV NR ×10 (20:00)
[2021-06-15] VITALS (8 sets, daily range): BP systolic 102–128; BP diastolic 64–71
[2021-06-15] MEDS: InsuLIN REG 1unit/0.01ml Soln (100units/ml) SC SCH ×4 (01:20→18:00)
[2021-06-15] MEDS: ACCU-CHEK COMFORT CURVE STRIP VI SCH ×4 (01:21→18:00)
[2021-06-15] MEDS: MEROPENEM 1GM IVPB 100 ML IV SCH ×3 (01:21→21:52)
[2021-06-15] MEDS: SODIUM CHLORIDE 0.9% 1,000 ML IV SCH ×2 (07:01→11:00)
[2021-06-15] MEDS: metroNIDAZOLE 500MG/100ML 100 ML IV SCH ×3 (07:02→21:52)
[2021-06-15] MEDS: VANCOMYCIN HCL 125MG/5ML ORAL SOL PO SCH ×3 (07:02→18:26)
[2021-06-15 08:21] LABS: Basophils # (auto) 0 10 ^3/uL (0-0.2); Basophils % (auto) 0.8 % (0.0-2.0); Eosinophils # (auto) 0.2 10 ^3/uL (0-0.8); Eosinophils % (auto) 3.4 % (0.0-7.0); Hemoglobin 9.8 g/dL (12.2-16.2); Lymphocytes # (auto) 1.1 10 ^3/uL (0.4-5.4); Lymphocytes % (auto) 19.9 % (10.0-50.0); Mean Corpuscular Hemoglobin 28.7 pg (28.0-32.0); Mean Corpuscular Hgb Conc. 32.8 g/dL (32.0-36.0); Mean Corpuscular Volume 87.5 fL (80.0-100.0); Monocytes # (auto) 0.4 10 ^3/uL (0-1.3); Monocytes % (auto) 7.6 % (0.0-12.0); Neutrophils # (auto) 3.9 10 ^3/uL (1.6-8.6); Neutrophils % (auto) 68.3 % (37.0-80.0); Red Blood Cells 3.42 10^6/uL (4.0-5.20); Red Cell Distribution Width 18.2 % (11.8-14.3); White Blood Cell 5.7 10^3/uL (4.4-10.8)
[2021-06-15] MEDS ORDERED: OMNIPAQUE ORAL SOLN 500ml 12mg/ml PO ONE (08:23)
[2021-06-15] MEDS ORDERED: IOHEXOL 300 MG/ML 100ML BOTTLE IJ ONE (08:23)
[2021-06-15 08:52] LABS: Albumin 1.7 g/dL (3.4-5.0); Magnesium 2.1 mg/dL (1.6-2.6); Potassium 4.2 mmol/L (3.5-5.1)
[2021-06-15 08:55] LABS: Bilirubin, Total 0.2 mg/dL (0.2-1.0); Total Protein 5.5 g/dL (6.4-8.2)
[2021-06-15] MEDS: FLORASTOR (S. BOULARDII) 250 MG CAP PO SCH (10:13)
[2021-06-15] MEDS: ENOXAPARIN SOD 40 MG/0.4 ML SYRINGE SC SCH (10:13)
[2021-06-15] MEDS: SODIUM CHLOR 0.9% PF (SALINE LOCK) 10ML VIAL/SYR IV SCH ×2 (10:25→21:52)
[2021-06-15] MEDS: LINEZOLID 600MG/300ML 300 ML IV SCH (13:05)
[2021-06-15] MEDS: MICAFUNGIN SODIUM 100 MG in SODIUM CHL 0.9% 100 ML IV SCH (15:10)
[2021-06-15] MEDS ORDERED: TPN PER PHARMACY IV NR ×10 (20:00)
[2021-06-16] VITALS (7 sets, daily range): BP systolic 118–126; BP diastolic 64–78
[2021-06-16] MEDS: LINEZOLID 600MG/300ML 300 ML IV SCH ×2 (01:00→13:15)
[2021-06-16 05:25] LABS: Basophils # (auto) 0 10 ^3/uL (0-0.2); Basophils % (auto) 0.9 % (0.0-2.0); Eosinophils # (auto) 0.2 10 ^3/uL (0-0.8); Eosinophils % (auto) 3.8 % (0.0-7.0); Hematocrit 29.3 % (36.0-46.0); Hemoglobin 9.6 g/dL (12.2-16.2); Lymphocytes # (auto) 1.2 10 ^3/uL (0.4-5.4); Lymphocytes % (auto) 23.7 % (10.0-50.0); Mean Corpuscular Hemoglobin 28.8 pg (28.0-32.0); Mean Corpuscular Hgb Conc. 32.8 g/dL (32.0-36.0); Mean Corpuscular Volume 87.8 fL (80.0-100.0); Monocytes # (auto) 0.3 10 ^3/uL (0-1.3); Monocytes % (auto) 6.9 % (0.0-12.0); Neutrophils # (auto) 3.1 10 ^3/uL (1.6-8.6); Neutrophils % (auto) 64.7 % (37.0-80.0); Potassium 4.2 mmol/L (3.5-5.1); Red Blood Cells 3.34 10^6/uL (4.0-5.20); Red Cell Distribution Width 18.3 % (11.8-14.3); White Blood Cell 4.9 10^3/uL (4.4-10.8)
[2021-06-16 05:31] LABS: Albumin 1.8 g/dL (3.4-5.0); Bilirubin, Total 0.1 mg/dL (0.2-1.0); Calcium 7.9 mg/dL (8.5-10.1); Magnesium 2.1 mg/dL (1.6-2.6); Phosphorus 3.2 mg/dL (2.5-4.90); Total Protein 5.3 g/dL (6.4-8.2)
[2021-06-16] MEDS: metroNIDAZOLE 500MG/100ML 100 ML IV SCH ×2 (06:02→13:15)
[2021-06-16] MEDS: VANCOMYCIN HCL 125MG/5ML ORAL SOL PO SCH ×4 (06:02→17:27)
[2021-06-16] MEDS: ACCU-CHEK COMFORT CURVE STRIP VI SCH ×4 (06:02→17:27)
[2021-06-16] MEDS: InsuLIN REG 1unit/0.01ml Soln (100units/ml) SC SCH ×4 (06:24→18:00)
[2021-06-16] MEDS: ENOXAPARIN SOD 40 MG/0.4 ML SYRINGE SC SCH (09:38)
[2021-06-16] MEDS: MEROPENEM 1GM IVPB 100 ML IV SCH ×2 (09:38→22:03)
[2021-06-16] MEDS: SODIUM CHLOR 0.9% PF (SALINE LOCK) 10ML VIAL/SYR IV SCH ×2 (09:39→22:04)
[2021-06-16] MEDS: SODIUM CHLORIDE 0.9% 1,000 ML IV SCH (09:40)
[2021-06-16] MEDS: FLORASTOR (S. BOULARDII) 250 MG CAP PO SCH (11:18)
[2021-06-16] MEDS: MICAFUNGIN SODIUM 100 MG in SODIUM CHL 0.9% 100 ML IV SCH (15:13)
[2021-06-16] MEDS ORDERED: TPN PER PHARMACY IV NR ×10 (20:00)
[2021-06-17] MEDS: LINEZOLID 600MG/300ML 300 ML IV SCH ×2 (01:00→13:59)
[2021-06-17 06:00] VITALS: BP 114/69
[2021-06-17] MEDS: InsuLIN REG 1unit/0.01ml Soln (100units/ml) SC SCH ×4 (06:00→17:50)
[2021-06-17] MEDS: VANCOMYCIN HCL 125MG/5ML ORAL SOL PO SCH ×4 (06:20→19:20)
[2021-06-17] MEDS: ACCU-CHEK COMFORT CURVE STRIP VI SCH ×4 (06:21→17:50)
[2021-06-17 06:56] LABS: Basophils # (auto) 0 10 ^3/uL (0-0.2); Basophils % (auto) 0.9 % (0.0-2.0); Eosinophils # (auto) 0.2 10 ^3/uL (0-0.8); Eosinophils % (auto) 3.3 % (0.0-7.0); Hematocrit 29.4 % (36.0-46.0); Hemoglobin 10.3 g/dL (12.2-16.2); Lymphocytes # (auto) 1.2 10 ^3/uL (0.4-5.4); Lymphocytes % (auto) 24.3 % (10.0-50.0); Mean Corpuscular Hemoglobin 30.3 pg (28.0-32.0); Mean Corpuscular Volume 86.6 fL (80.0-100.0); Monocytes # (auto) 0.4 10 ^3/uL (0-1.3); Monocytes % (auto) 7.8 % (0.0-12.0); Neutrophils # (auto) 3.1 10 ^3/uL (1.6-8.6); Neutrophils % (auto) 63.7 % (37.0-80.0); Nucleated Red Blood Cells % 0.2 %; Red Cell Distribution Width 17.9 % (11.8-14.3); White Blood Cell 4.9 10^3/uL (4.4-10.8)
[2021-06-17 08:00] VITALS: BP 122/75
[2021-06-17 08:35] LABS: Albumin 1.9 g/dL (3.4-5.0); Calcium 8.2 mg/dL (8.5-10.1); Magnesium 2.3 mg/dL (1.6-2.6); Potassium 4.3 mmol/L (3.5-5.1)
[2021-06-17 08:39] LABS: BUN/Creatinine Ratio 47.2; Bilirubin, Total 0.1 mg/dL (0.2-1.0); Total Protein 5.8 g/dL (6.4-8.2)
[2021-06-17] MEDS: MEROPENEM 1GM IVPB 100 ML IV SCH ×2 (09:20→20:26)
[2021-06-17] MEDS: ENOXAPARIN SOD 40 MG/0.4 ML SYRINGE SC SCH (09:20)
[2021-06-17] MEDS: FLORASTOR (S. BOULARDII) 250 MG CAP PO SCH (09:21)
[2021-06-17] MEDS: SODIUM CHLORIDE 0.9% 1,000 ML IV SCH (09:21)
[2021-06-17] MEDS: SODIUM CHLOR 0.9% PF (SALINE LOCK) 10ML VIAL/SYR IV SCH ×2 (09:21→20:26)
[2021-06-17 12:00] VITALS: BP 135/53
[2021-06-17] MEDS: MICAFUNGIN SODIUM 100 MG in SODIUM CHL 0.9% 100 ML IV SCH (15:08)
[2021-06-17 18:00] VITALS: BP 112/52
[2021-06-17 20:00] VITALS: BP 114/73
[2021-06-17] MEDS ORDERED: TPN PER PHARMACY IV NR ×9 (20:00)
[2021-06-18 00:01] VITALS: BP 110/70
[2021-06-18] MEDS: LINEZOLID 600MG/300ML 300 ML IV SCH ×2 (01:00→13:11)
[2021-06-18] MEDS: VANCOMYCIN HCL 125MG/5ML ORAL SOL PO SCH ×4 (03:55→17:17)
[2021-06-18 04:01] VITALS: BP 134/73
[2021-06-18 05:10] LABS: BUN/Creatinine Ratio 42.9; Magnesium 2.1 mg/dL (1.6-2.6); Potassium 4.2 mmol/L (3.5-5.1)
[2021-06-18 05:18] LABS: Bilirubin, Total 0.2 mg/dL (0.2-1.0); Phosphorus 3.5 mg/dL (2.5-4.90); Total Protein 5.7 g/dL (6.4-8.2)
[2021-06-18] MEDS: ACCU-CHEK COMFORT CURVE STRIP VI SCH ×4 (05:19→17:18)
[2021-06-18] MEDS: InsuLIN REG 1unit/0.01ml Soln (100units/ml) SC SCH ×4 (05:20→18:00)
[2021-06-18 08:00] VITALS: BP 113/63
[2021-06-18] MEDS: MEROPENEM 1GM IVPB 100 ML IV SCH ×2 (09:18→21:45)
[2021-06-18] MEDS: FLORASTOR (S. BOULARDII) 250 MG CAP PO SCH (09:19)
[2021-06-18] MEDS: SODIUM CHLOR 0.9% PF (SALINE LOCK) 10ML VIAL/SYR IV SCH ×2 (09:19→21:45)
[2021-06-18] MEDS: ENOXAPARIN SOD 40 MG/0.4 ML SYRINGE SC SCH (09:19)
[2021-06-18] MEDS: SODIUM CHLORIDE 0.9% 1,000 ML IV SCH (09:21)
[2021-06-18 13:00] VITALS: BP 108/64
[2021-06-18] MEDS: MICAFUNGIN SODIUM 100 MG in SODIUM CHL 0.9% 100 ML IV SCH (14:43)
[2021-06-18 17:00] VITALS: BP 111/66
[2021-06-18 20:00] VITALS: BP 123/69
[2021-06-18] MEDS ORDERED: TPN PER PHARMACY IV NR ×9 (20:00)
[2021-06-19] VITALS (11 sets, daily range): BP systolic 108–123; BP diastolic 58–67
[2021-06-19] MEDS: InsuLIN REG 1unit/0.01ml Soln (100units/ml) SC SCH ×5 (00:30→23:40)
[2021-06-19] MEDS: ACCU-CHEK COMFORT CURVE STRIP VI SCH ×5 (00:30→23:39)
[2021-06-19] MEDS: VANCOMYCIN HCL 125MG/5ML ORAL SOL PO SCH ×5 (01:08→23:39)
[2021-06-19] MEDS: LINEZOLID 600MG/300ML 300 ML IV SCH ×2 (01:08→16:25)
[2021-06-19] MEDS: SODIUM CHLORIDE 0.9% 1,000 ML IV SCH (06:24)
[2021-06-19 06:29] LABS: Basophils # (auto) 0.1 10 ^3/uL (0-0.2); Basophils % (auto) 1.3 % (0.0-2.0); Eosinophils # (auto) 0.1 10 ^3/uL (0-0.8); Eosinophils % (auto) 2.7 % (0.0-7.0); Hemoglobin 10.4 g/dL (12.2-16.2); Lymphocytes # (auto) 1.3 10 ^3/uL (0.4-5.4); Lymphocytes % (auto) 23.6 % (10.0-50.0); Mean Corpuscular Hemoglobin 29.3 pg (28.0-32.0); Mean Corpuscular Hgb Conc. 33.6 g/dL (32.0-36.0); Mean Corpuscular Volume 87.2 fL (80.0-100.0); Monocytes # (auto) 0.4 10 ^3/uL (0-1.3); Monocytes % (auto) 7.7 % (0.0-12.0); Neutrophils # (auto) 3.5 10 ^3/uL (1.6-8.6); Neutrophils % (auto) 64.7 % (37.0-80.0); Red Blood Cells 3.56 10^6/uL (4.0-5.20); Red Cell Distribution Width 17.8 % (11.8-14.3); White Blood Cell 5.4 10^3/uL (4.4-10.8)
[2021-06-19 06:43] LABS: Potassium 4.4 mmol/L (3.5-5.1)
[2021-06-19 06:48] LABS: Albumin 2.2 g/dL (3.4-5.0); BUN/Creatinine Ratio 47.5; Bilirubin, Total 0.2 mg/dL (0.2-1.0); Calcium 8.3 mg/dL (8.5-10.1); Magnesium 2.2 mg/dL (1.6-2.6); Total Protein 6.2 g/dL (6.4-8.2)
[2021-06-19] MEDS: ENOXAPARIN SOD 40 MG/0.4 ML SYRINGE SC SCH (10:57)
[2021-06-19] MEDS: SODIUM CHLOR 0.9% PF (SALINE LOCK) 10ML VIAL/SYR IV SCH ×2 (10:57→23:39)
[2021-06-19] MEDS: MEROPENEM 1GM IVPB 100 ML IV SCH ×2 (10:57→23:39)
[2021-06-19] MEDS: FLORASTOR (S. BOULARDII) 250 MG CAP PO SCH (10:58)
[2021-06-19] MEDS: MICAFUNGIN SODIUM 100 MG in SODIUM CHL 0.9% 100 ML IV SCH (18:41)
[2021-06-19] MEDS ORDERED: TPN PER PHARMACY IV NR ×9 (20:00)
[2021-06-20] MEDS: LINEZOLID 600MG/300ML 300 ML IV SCH ×3 (01:58→23:54)
[2021-06-20 04:00] VITALS: BP 120/66
[2021-06-20] MEDS: InsuLIN REG 1unit/0.01ml Soln (100units/ml) SC SCH ×4 (06:00→23:53)
[2021-06-20] MEDS: ACCU-CHEK COMFORT CURVE STRIP VI SCH ×4 (06:00→23:54)
[2021-06-20] MEDS: VANCOMYCIN HCL 125MG/5ML ORAL SOL PO SCH (06:04)
[2021-06-20 06:33] LABS: Basophils # (auto) 0.1 10 ^3/uL (0-0.2); Basophils % (auto) 1.3 % (0.0-2.0); Eosinophils # (auto) 0.1 10 ^3/uL (0-0.8); Eosinophils % (auto) 2.2 % (0.0-7.0); Hematocrit 31.4 % (36.0-46.0); Hemoglobin 10.5 g/dL (12.2-16.2); Lymphocytes % (auto) 15.6 % (10.0-50.0); Mean Corpuscular Hgb Conc. 33.5 g/dL (32.0-36.0); Mean Corpuscular Volume 92.5 fL (80.0-100.0); Monocytes # (auto) 0.4 10 ^3/uL (0-1.3); Monocytes % (auto) 6.1 % (0.0-12.0); Neutrophils # (auto) 4.8 10 ^3/uL (1.6-8.6); Neutrophils % (auto) 74.8 % (37.0-80.0); Nucleated Red Blood Cells % 0.2 %; Red Blood Cells 3.39 10^6/uL (4.0-5.20); Red Cell Distribution Width 18.5 % (11.8-14.3); White Blood Cell 6.4 10^3/uL (4.4-10.8)
[2021-06-20 09:00] VITALS: BP 104/64
[2021-06-20 09:07] LABS: Blood Urea Nitrogen 19 mg/dL (7-18)
[2021-06-20 09:10] LABS: Alanine Aminotransferase 21 U/L (13-56); Albumin 2.2 g/dL (3.4-5.0); Alkaline Phosphatase 86 U/L (45-117); Anion Gap 5 (5-15); Aspartate Aminotransferase 19 U/L (15-37); BUN/Creatinine Ratio 45.2; Bilirubin, Total 0.2 mg/dL (0.2-1.0); Calcium 8.6 mg/dL (8.5-10.1); Carbon Dioxide 28 mmol/L (21-32); Chloride 105 mmol/L (98-107); GFR African American 190 mL/min; GFR Non-African American 157 mL/min; Glucose 131 mg/dL (74-106); Magnesium 2.4 mg/dL (1.6-2.6); Potassium 4.4 mmol/L (3.5-5.1); Sodium 138 mmol/L (136-145); Total Protein 6.2 g/dL (6.4-8.2)
[2021-06-20] MEDS: ENOXAPARIN SOD 40 MG/0.4 ML SYRINGE SC SCH (09:12)
[2021-06-20] MEDS: FLORASTOR (S. BOULARDII) 250 MG CAP PO SCH (09:12)
[2021-06-20] MEDS: MEROPENEM 1GM IVPB 100 ML IV SCH ×2 (09:12→21:12)
[2021-06-20] MEDS: SODIUM CHLORIDE 0.9% 1,000 ML IV SCH (09:13)
[2021-06-20] MEDS: SODIUM CHLOR 0.9% PF (SALINE LOCK) 10ML VIAL/SYR IV SCH ×2 (09:13→21:36)
[2021-06-20] MEDS ORDERED: VANCOMYCIN HCL 500MG/5ML ORAL SOL PO SCH (12:00)
[2021-06-20 14:00] VITALS: BP 110/67
[2021-06-20 16:00] VITALS: BP 123/65
[2021-06-20] MEDS: MICAFUNGIN SODIUM 100 MG in SODIUM CHL 0.9% 100 ML IV SCH (16:03)
[2021-06-20] MEDS ORDERED: TPN PER PHARMACY IV NR ×10 (20:00)
[2021-06-20] MEDS: VANCOMYCIN HCL 500MG/5ML ORAL SOL PO SCH (21:11)
[2021-06-21] MEDS: VANCOMYCIN HCL 500MG/5ML ORAL SOL PO SCH ×4 (02:59→20:48)
[2021-06-21] MEDS: ACCU-CHEK COMFORT CURVE STRIP VI SCH ×4 (05:19→23:22)
[2021-06-21] MEDS: InsuLIN REG 1unit/0.01ml Soln (100units/ml) SC SCH ×4 (05:19→23:22)
[2021-06-21 08:06] LABS: Albumin 2.3 g/dL (3.4-5.0); BUN/Creatinine Ratio 47.4; Calcium 8.6 mg/dL (8.5-10.1); Magnesium 2.2 mg/dL (1.6-2.6); Phosphorus 3.9 mg/dL (2.5-4.90); Potassium 4.1 mmol/L (3.5-5.1)
[2021-06-21] MEDS: ENOXAPARIN SOD 40 MG/0.4 ML SYRINGE SC SCH (09:43)
[2021-06-21] MEDS: SODIUM CHLOR 0.9% PF (SALINE LOCK) 10ML VIAL/SYR IV SCH ×2 (09:43→22:43)
[2021-06-21] MEDS: MEROPENEM 1GM IVPB 100 ML IV SCH ×2 (09:43→22:43)
[2021-06-21] MEDS: SODIUM CHLORIDE 0.9% 1,000 ML IV SCH (10:30)
[2021-06-21] MEDS: FLORASTOR (S. BOULARDII) 250 MG CAP PO SCH (11:00)
[2021-06-21] MEDS: LINEZOLID 600MG/300ML 300 ML IV SCH (13:42)
[2021-06-21] MEDS: MICAFUNGIN SODIUM 100 MG in SODIUM CHL 0.9% 100 ML IV SCH (18:21)
[2021-06-21] MEDS ORDERED: TPN PER PHARMACY IV NR ×10 (20:00)
[2021-06-21 22:00] VITALS: BP 106/60
[2021-06-22] MEDS: LINEZOLID 600MG/300ML 300 ML IV SCH ×2 (01:10→14:10)
[2021-06-22] MEDS: VANCOMYCIN HCL 500MG/5ML ORAL SOL PO SCH ×4 (03:44→21:54)
[2021-06-22 05:00] VITALS: BP 104/61
[2021-06-22] MEDS: ACCU-CHEK COMFORT CURVE STRIP VI SCH ×3 (05:49→18:04)
[2021-06-22] MEDS: InsuLIN REG 1unit/0.01ml Soln (100units/ml) SC SCH ×3 (05:49→18:00)
[2021-06-22 09:00] VITALS: BP 124/69
[2021-06-22] MEDS: SODIUM CHLOR 0.9% PF (SALINE LOCK) 10ML VIAL/SYR IV SCH ×2 (10:05→21:54)
[2021-06-22] MEDS: MEROPENEM 1GM IVPB 100 ML IV SCH ×2 (10:05→21:54)
[2021-06-22] MEDS: FLORASTOR (S. BOULARDII) 250 MG CAP PO SCH (10:06)
[2021-06-22] MEDS: ENOXAPARIN SOD 40 MG/0.4 ML SYRINGE SC SCH (10:06)
[2021-06-22] MEDS: SODIUM CHLORIDE 0.9% 1,000 ML IV SCH (10:30)
[2021-06-22 12:30] VITALS: BP 106/59
[2021-06-22 14:39] LABS: INR 1.07 (0.9-1.15); Partial Thromboplastin Time 31.9 sec (23.6-33.0)
[2021-06-22 15:22] LABS: BUN/Creatinine Ratio 51.1; Bilirubin, Total 0.4 mg/dL (0.2-1.0); Calcium 9.2 mg/dL (8.5-10.1); Phosphorus 3.6 mg/dL (2.5-4.90); Potassium 4.3 mmol/L (3.5-5.1); Total Protein 7.1 g/dL (6.4-8.2)
[2021-06-22 15:23] LABS: Albumin 2.6 g/dL (3.4-5.0); Magnesium 2.4 mg/dL (1.6-2.6)
[2021-06-22] MEDS: MICAFUNGIN SODIUM 100 MG in SODIUM CHL 0.9% 100 ML IV SCH (16:44)
[2021-06-22] MEDS: TPN PER PHARMACY IV NR ×9 (19:59)
[2021-06-22 22:00] VITALS: BP 108/60
[2021-06-23] MEDS: ACCU-CHEK COMFORT CURVE STRIP VI SCH ×5 (04:52→23:15)
[2021-06-23] MEDS: VANCOMYCIN HCL 500MG/5ML ORAL SOL PO SCH ×4 (04:53→20:22)
[2021-06-23] MEDS: LINEZOLID 600MG/300ML 300 ML IV SCH ×2 (04:53→14:56)
[2021-06-23 05:49] LABS: Basophils # (auto) 0.1 10 ^3/uL (0-0.2); Basophils % (auto) 0.9 % (0.0-2.0); Eosinophils # (auto) 0.1 10 ^3/uL (0-0.8); Eosinophils % (auto) 2.1 % (0.0-7.0); Hematocrit 30.5 % (36.0-46.0); Hemoglobin 10.3 g/dL (12.2-16.2); Lymphocytes # (auto) 1.2 10 ^3/uL (0.4-5.4); Lymphocytes % (auto) 18.8 % (10.0-50.0); Mean Corpuscular Hemoglobin 29.5 pg (28.0-32.0); Mean Corpuscular Hgb Conc. 33.8 g/dL (32.0-36.0); Mean Corpuscular Volume 87.5 fL (80.0-100.0); Monocytes # (auto) 0.4 10 ^3/uL (0-1.3); Neutrophils # (auto) 4.5 10 ^3/uL (1.6-8.6); Neutrophils % (auto) 71.2 % (37.0-80.0); Nucleated Red Blood Cells % 0.1 %; Red Blood Cells 3.49 10^6/uL (4.0-5.20); Red Cell Distribution Width 18.1 % (11.8-14.3); White Blood Cell 6.3 10^3/uL (4.4-10.8)
[2021-06-23 06:02] LABS: Albumin 2.4 g/dL (3.4-5.0); Calcium 8.8 mg/dL (8.5-10.1); Magnesium 2.2 mg/dL (1.6-2.6); Potassium 4.1 mmol/L (3.5-5.1)
[2021-06-23 06:05] LABS: BUN/Creatinine Ratio 53.3; Bilirubin, Total 0.2 mg/dL (0.2-1.0); Phosphorus 3.7 mg/dL (2.5-4.90); Total Protein 6.6 g/dL (6.4-8.2)
[2021-06-23] MEDS: InsuLIN REG 1unit/0.01ml Soln (100units/ml) SC SCH ×5 (06:22→23:15)
[2021-06-23] MEDS ORDERED: OMNIPAQUE ORAL SOLN 500ml 12mg/ml PO ONE (07:47)
[2021-06-23 09:00] VITALS: BP 106/60
[2021-06-23] MEDS: FLORASTOR (S. BOULARDII) 250 MG CAP PO SCH (10:26)
[2021-06-23] MEDS: ENOXAPARIN SOD 40 MG/0.4 ML SYRINGE SC SCH (10:26)
[2021-06-23] MEDS: MEROPENEM 1GM IVPB 100 ML IV SCH ×2 (10:27→21:49)
[2021-06-23] MEDS: SODIUM CHLOR 0.9% PF (SALINE LOCK) 10ML VIAL/SYR IV SCH ×2 (10:27→21:49)
[2021-06-23] MEDS: SODIUM CHLORIDE 0.9% 1,000 ML IV SCH (10:28)
[2021-06-23 12:40] VITALS: BP 107/59
[2021-06-23] MEDS: MICAFUNGIN SODIUM 100 MG in SODIUM CHL 0.9% 100 ML IV SCH (16:23)
[2021-06-23 17:13] VITALS: BP 99/62
[2021-06-23] MEDS: TPN PER PHARMACY IV NR ×9 (19:55)
[2021-06-23] MEDS ORDERED: TPN PER PHARMACY IV NR ×10 (20:00)
[2021-06-23 22:01] VITALS: BP 125/61
[2021-06-24] MEDS: LINEZOLID 600MG/300ML 300 ML IV SCH ×2 (00:56→12:49)
[2021-06-24] MEDS: VANCOMYCIN HCL 500MG/5ML ORAL SOL PO SCH ×4 (03:27→23:02)
[2021-06-24 05:00] VITALS: BP 122/63
[2021-06-24] MEDS: ACCU-CHEK COMFORT CURVE STRIP VI SCH ×4 (05:23→23:08)
[2021-06-24] MEDS: InsuLIN REG 1unit/0.01ml Soln (100units/ml) SC SCH ×4 (05:23→23:08)
[2021-06-24 06:06] LABS: Potassium 3.8 mmol/L (3.5-5.1)
[2021-06-24 06:20] LABS: Albumin 2.4 g/dL (3.4-5.0); BUN/Creatinine Ratio 47.8; Bilirubin, Total 0.4 mg/dL (0.2-1.0); Calcium 8.7 mg/dL (8.5-10.1); Phosphorus 3.9 mg/dL (2.5-4.90); Total Protein 6.6 g/dL (6.4-8.2)
[2021-06-24 09:10] VITALS: BP 114/62
[2021-06-24] MEDS: MEROPENEM 1GM IVPB 100 ML IV SCH ×2 (09:15→17:22)
[2021-06-24] MEDS: ENOXAPARIN SOD 40 MG/0.4 ML SYRINGE SC SCH (09:16)
[2021-06-24] MEDS: FLORASTOR (S. BOULARDII) 250 MG CAP PO SCH (09:16)
[2021-06-24] MEDS: SODIUM CHLOR 0.9% PF (SALINE LOCK) 10ML VIAL/SYR IV SCH ×2 (09:16→23:07)
[2021-06-24] MEDS: SODIUM CHLORIDE 0.9% 1,000 ML IV SCH (10:35)
[2021-06-24 13:00] VITALS: BP 121/66
[2021-06-24] MEDS ORDERED: MEROPENEM 1GM IVPB 100 ML IV SCH (14:00)
[2021-06-24] MEDS: MICAFUNGIN SODIUM 100 MG in SODIUM CHL 0.9% 100 ML IV SCH (15:04)
[2021-06-24 17:19] VITALS: BP 109/67
[2021-06-24] MEDS ORDERED: TPN PER PHARMACY IV NR ×10 (20:00)
[2021-06-24 21:55] VITALS: BP 127/62
[2021-06-25] MEDS: LINEZOLID 600MG/300ML 300 ML IV SCH ×2 (00:58→13:00)
[2021-06-25] MEDS: MEROPENEM 1GM IVPB 100 ML IV SCH ×2 (02:42→09:00)
[2021-06-25] MEDS: VANCOMYCIN HCL 500MG/5ML ORAL SOL PO SCH ×3 (02:42→15:00)
[2021-06-25 05:00] VITALS: BP 103/59
[2021-06-25] MEDS: InsuLIN REG 1unit/0.01ml Soln (100units/ml) SC SCH ×2 (06:00→12:00)
[2021-06-25 06:24] LABS: Albumin 2.4 g/dL (3.4-5.0); Calcium 8.6 mg/dL (8.5-10.1); Potassium 3.9 mmol/L (3.5-5.1)
[2021-06-25 06:27] LABS: BUN/Creatinine Ratio 46.5; Bilirubin, Total 0.3 mg/dL (0.2-1.0); Phosphorus 3.9 mg/dL (2.5-4.90); Total Protein 6.5 g/dL (6.4-8.2)
[2021-06-25] MEDS: ACCU-CHEK COMFORT CURVE STRIP VI SCH ×2 (06:27→12:00)
[2021-06-25 09:00] VITALS: BP 119/62
[2021-06-25] MEDS: FLORASTOR (S. BOULARDII) 250 MG CAP PO SCH (10:00)
[2021-06-25] MEDS: ENOXAPARIN SOD 40 MG/0.4 ML SYRINGE SC SCH (10:00)
[2021-06-25] MEDS: SODIUM CHLOR 0.9% PF (SALINE LOCK) 10ML VIAL/SYR IV SCH (10:00)
[2021-06-25] MEDS: SODIUM CHLORIDE 0.9% 1,000 ML IV SCH (10:30)
[2021-06-25 13:00] VITALS: BP 113/60
[2021-06-25 14:56] VITALS: BP 113/60
[2021-06-25] MEDS: MICAFUNGIN SODIUM 100 MG in SODIUM CHL 0.9% 100 ML IV SCH (15:00)
[2021-06-25] MEDS ORDERED: TPN PER PHARMACY IV NR ×10 (20:00)
== END 2021-06-25 16:45 | disposition home health service (06) | DRG 871 ==
LOC: ER 10:35 → OVERFLOW 13:30 → ICU WEST 20:49 → DOU IN ICU 06-13 15:32 → TELE-WESTW 06-20 17:53 → WEST WING 06-24 17:26
PROVIDERS: ADMIT Hospitalist; ATTEND Internal Medicine
PROC: 02HV33Z Insertion of Infusion Device into Superior Vena Cava, Percutaneous Approach (ICD-10-PCS; principal; 2021-06-11)
DX: A41.9 Sepsis, unspecified organism (principal); K65.1 Peritoneal abscess; R65.21 Severe sepsis with septic shock; K51.90 Ulcerative colitis, unspecified, without complications; K80.62 Calculus of gallbladder and bile duct with acute cholecystitis without obstruction; L03.311 Cellulitis of abdominal wall; N39.0 Urinary tract infection, site not specified; A04.72 Enterocolitis due to Clostridium difficile, not specified as recurrent; K63.2 Fistula of intestine; T81.31XA Disruption of external operation (surgical) wound, not elsewhere classified, initial encounter; K80.20 Calculus of gallbladder without cholecystitis without obstruction; D64.9 Anemia, unspecified; E78.5 Hyperlipidemia, unspecified; E88.81 Metabolic syndrome and other insulin resistance; I11.0 Hypertensive heart disease with heart failure; E66.01 Morbid (severe) obesity due to excess calories; Z20.822 Contact with and (suspected) exposure to COVID-19; Y83.8 Other surgical procedures as the cause of abnormal reaction of the patient, or of later complication, without mention of misadventure at the time of the procedure; E83.42 Hypomagnesemia; E87.6 Hypokalemia; Z88.8 Allergy status to other drugs, medicaments and biological substances; Z68.24 Body mass index [BMI] 24.0-24.9, adult; Y92.89 Other specified places as the place of occurrence of the external cause
CPT/HCPCS: 36415; 36569; 71045; 74018; 74176; 74177; 74181; 80053; 80061; 80069; 81001; 82150; 82550; 82728; 82962; 83605; 83615; 83690; 83735; 83880; 84100; 84443; 84478; 84484; 85025; 85379; 85610; 85652; 85730; 86141; 87040; 87045; 87081; 87086; 87427; 87493; 93005; 96360; 96361; 97110; 97116; 97163; 97530; G0378; J1815; J2185; J2248; J2405; J2543; J3480; J3490; J7131

== ENCOUNTER 2021-07-29 09:45 | Inpatient (IN) | payer BC ==
[~2021-07-29] VITALS: Ht 154.9 cm; Wt 55.3 kg
[2021-07-29 10:54] LABS: Basophils # (auto) 0 10 ^3/uL (0-0.2); Basophils % (auto) 0.1 % (0.0-2.0); Eosinophils # (auto) 0.4 10 ^3/uL (0-0.8); Eosinophils % (auto) 2.3 % (0.0-7.0); Hemoglobin 7.6 g/dL (12.2-16.2); Lymphocytes # (auto) 0.9 10 ^3/uL (0.4-5.4); Lymphocytes % (auto) 5.9 % (10.0-50.0); Mean Corpuscular Volume 98.5 fL (80.0-100.0); Nucleated Red Blood Cells % 0.1 %
[2021-07-29 10:57] LABS: Hematocrit 22.9 % (36.0-46.0); Mean Corpuscular Hemoglobin 32.5 pg (28.0-32.0); Monocytes # (auto) 1.2 10 ^3/uL (0-1.3); Monocytes % (auto) 7.7 % (0.0-12.0); Neutrophils # (auto) 13.1 10 ^3/uL (1.6-8.6); Red Blood Cells 2.32 10^6/uL (4.0-5.20); Red Cell Distribution Width 24.4 % (11.8-14.3); White Blood Cell 15.6 10^3/uL (4.4-10.8)
[2021-07-29 11:04] LABS: Albumin 2.6 g/dL (3.4-5.0); Calcium 8.8 mg/dL (8.5-10.1); Magnesium 2.5 mg/dL (1.6-2.6); Potassium 3.1 mmol/L (3.5-5.1)
[2021-07-29 11:06] LABS: BUN/Creatinine Ratio 66.2; Bilirubin, Total 0.6 mg/dL (0.2-1.0); Total Protein 6.7 g/dL (6.4-8.2)
[2021-07-29] MEDS ORDERED: CEFEPIME 1GM/ 50ML 50 ML IV ONE (11:30)
[2021-07-29] MEDS ORDERED: SODIUM CHLORIDE 0.9% 2,000 ML IV ONE (11:30)
[2021-07-29] MEDS ORDERED: VANCOMYCIN 1GM/250ML 250 ML IV ONE (11:30)
[2021-07-29] MEDS ORDERED: POTASSIUM CHL 20MEQ/100ML 100 ML IV ONE (12:00)
[2021-07-29] MEDS ORDERED: POTASSIUM EFFERVESENT TAB 25 MEQ PO ONE (12:00)
[2021-07-29] MEDS ORDERED: IOHEXOL 300 MG/ML 100ML BOTTLE IJ ONE (15:11)
[2021-07-29] MEDS ORDERED: ACETAMINOPHEN 325 MG TAB PO PRN (16:00)
[2021-07-29] MEDS ORDERED: ONDANSETRON HCL 4 MG/2 ML VIAL IV PRN (16:00)
[2021-07-29] MEDS ORDERED: DOCUSATE SOD 100 MG CAP PO PRN (16:00)
[2021-07-29] MEDS ORDERED: HYDROcodone-ACET 5/325MG TAB PO PRN (16:00)
[2021-07-29] MEDS ORDERED: MEROPENEM 1GM/NS 100ml AE IV SCH (18:00)
[2021-07-29 21:01] VITALS: BP 100/47
[2021-07-29 22:00] VITALS: BP 101/48
[2021-07-29] MEDS ORDERED: LINEZOLID 600 MG/300 ML IV BAG IV SCH (22:00)
[2021-07-29] MEDS: LINEZOLID 600MG/300ML 300 ML IV SCH (22:36)
[2021-07-29] MEDS: SODIUM CHLOR 0.9% PF (SALINE LOCK) 10ML VIAL/SYR IV SCH (22:36)
[2021-07-29] MEDS ORDERED: SODIUM CHLORIDE 0.9% 500 ML IV ONE (23:15)
[2021-07-30 04:48] VITALS: BP 100/43
[2021-07-30] MEDS: SODIUM CHLOR 0.9% PF (SALINE LOCK) 10ML VIAL/SYR IV SCH ×3 (05:32→22:00)
[2021-07-30] MEDS ORDERED: MEROPENEM 1GM/NS 100ml AE IV SCH (06:45)
[2021-07-30 08:00] VITALS: BP_SYST 108; BP_SYST 120; BP_DIAS 51; BP_DIAS 72
[2021-07-30] MEDS ORDERED: ATORVASTATIN 20 MG TAB PO SCH (10:00)
[2021-07-30] MEDS ORDERED: ASPirin-EC 81 mg tab PO SCH (10:00)
[2021-07-30] MEDS ORDERED: ATENOLOL 25 MG TAB PO SCH (10:00)
[2021-07-30] MEDS ORDERED: FERROUS SULFATE 325mg EC TAB PO SCH (10:00)
[2021-07-30] MEDS: MEROPENEM 1GM IVPB 100 ML IV SCH ×2 (11:25→21:59)
[2021-07-30] MEDS: LINEZOLID 600MG/300ML 300 ML IV SCH ×2 (11:41→21:11)
[2021-07-30 12:00] VITALS: BP 120/72
[2021-07-30] MEDS: SODIUM CHLORIDE 0.9% 1,000 ML IV SCH (12:45)
[2021-07-30] MEDS ORDERED: TPN PER PHARMACY 0 ML IV SCH (12:45)
[2021-07-30 13:37] LABS: Albumin 2.3 g/dL (3.4-5.0); Calcium 8.5 mg/dL (8.5-10.1); Magnesium 2.2 mg/dL (1.6-2.6); Potassium 3.3 mmol/L (3.5-5.1)
[2021-07-30 13:40] LABS: BUN/Creatinine Ratio 29.7; Bilirubin, Total 0.6 mg/dL (0.2-1.0); Phosphorus 3.5 mg/dL (2.5-4.90); Total Protein 6.2 g/dL (6.4-8.2)
[2021-07-30] MEDS ORDERED: IOHEXOL 350 MG/ML 100ML IJ ONE ×2 (13:46→13:48)
[2021-07-30] MEDS ORDERED: POTASSIUM PHOSPHATE 22 MEQ in SODIUM CHL 0.9% 100 ML IV ONE ×2 (14:15→20:00)
[2021-07-30 16:00] VITALS: BP 103/62
[2021-07-30] MEDS ORDERED: AMINO ACID INFUSION IN D10W 1,000 ML IV NR (20:00)
[2021-07-30 22:00] VITALS: BP 91/44
[2021-07-30] MEDS: FAMOTIDINE (10MG/ML) 2ML VL IV SCH (22:00)
[2021-07-31] MEDS ORDERED: DEXTROSE (50%) 50ML SYRG IV SCH
[2021-07-31] MEDS: ACCU-CHEK COMFORT CURVE STRIP VI SCH ×4 (00:12→18:00)
[2021-07-31 05:00] VITALS: BP 105/49
[2021-07-31 05:31] LABS: Hematocrit 19.6 % (36.0-46.0); Mean Corpuscular Hemoglobin 32.4 pg (28.0-32.0); Mean Corpuscular Hgb Conc. 33.8 g/dL (32.0-36.0); Mean Corpuscular Volume 95.9 fL (80.0-100.0); Red Blood Cells 2.04 10^6/uL (4.0-5.20)
[2021-07-31 05:35] LABS: Potassium 3.1 mmol/L (3.5-5.1)
[2021-07-31 05:43] LABS: BUN/Creatinine Ratio 28.8; Bilirubin, Total 0.4 mg/dL (0.2-1.0); Calcium 7.7 mg/dL (8.5-10.1); Magnesium 1.8 mg/dL (1.6-2.6); Phosphorus 3.2 mg/dL (2.5-4.90); Total Protein 5.3 g/dL (6.4-8.2)
[2021-07-31] MEDS: InsuLIN REG 1unit/0.01ml Soln (100units/ml) SC SCH ×4 (06:00→18:00)
[2021-07-31] MEDS: SODIUM CHLORIDE 0.9% 1,000 ML IV SCH ×2 (06:34→17:40)
[2021-07-31] MEDS: SODIUM CHLOR 0.9% PF (SALINE LOCK) 10ML VIAL/SYR IV SCH ×3 (06:34→22:16)
[2021-07-31 07:42] LABS: Red Cell Distribution Width 22.6 % (11.8-14.3)
[2021-07-31 07:44] LABS: Basophils % (manual) 0 (0.0-2.0); Blast Cells 0; Eosinophils % (manual) 0 (0-7); Hemoglobin 6.7 g/dL (12.2-16.2); Metamyelocytes % 0; Myelocytes % 0; Promyelocytes % 0; Reactive Lymphocytes 0
[2021-07-31 08:54] VITALS: BP 93/51
[2021-07-31 09:11] LABS: Band Neutrophils % (manual) 16; Lymphocytes % (manual) 12 (10.0-50.0); Monocytes % (manual) 16 (0-12)
[2021-07-31 10:29] LABS: INR 1.2 (0.9-1.15); Partial Thromboplastin Time 35.8 sec (23.6-33.0)
[2021-07-31 10:52] LABS: Hematocrit 22.5 % (36.0-46.0)
[2021-07-31] MEDS: LINEZOLID 600MG/300ML 300 ML IV SCH ×2 (11:46→22:05)
[2021-07-31] MEDS: MEROPENEM 1GM IVPB 100 ML IV SCH ×2 (11:46→22:04)
[2021-07-31] MEDS: FLORASTOR (S. BOULARDII) 250 MG CAP PO SCH (11:47)
[2021-07-31 13:00] VITALS: BP 97/51
[2021-07-31] MEDS: POTASSIUM CHL 20MEQ/100ML 100 ML IV SCH ×2 (14:01→17:39)
[2021-07-31 17:00] VITALS: BP 91/52
[2021-07-31] MEDS ORDERED: TPN PER PHARMACY IV NR ×9 (20:00)
[2021-07-31 21:05] VITALS: BP 86/51
[2021-07-31 21:29] VITALS: BP 86/59
[2021-07-31] MEDS: FAMOTIDINE (10MG/ML) 2ML VL IV SCH (22:04)
[2021-08-01] VITALS (7 sets, daily range): BP systolic 88–108; BP diastolic 48–65
[2021-08-01 03:07] LABS: Urine Bacteria NONE SEEN /hpf (None Seen); Urine Blood Negative /uL (Negative); Urine Specific Gravity 1.014 (1.001-1.035); Urine WBC 135 /hpf (0 - 5)
[2021-08-01] MEDS: SODIUM CHLOR 0.9% PF (SALINE LOCK) 10ML VIAL/SYR IV SCH ×3 (06:00→22:18)
[2021-08-01] MEDS: ACCU-CHEK COMFORT CURVE STRIP VI SCH ×4 (06:00→17:54)
[2021-08-01] MEDS: InsuLIN REG 1unit/0.01ml Soln (100units/ml) SC SCH ×4 (06:00→18:00)
[2021-08-01 06:42] LABS: Basophils # (auto) 0 10 ^3/uL (0-0.2); Basophils % (auto) 0.4 % (0.0-2.0); Eosinophils # (auto) 0.2 10 ^3/uL (0-0.8); Eosinophils % (auto) 3.8 % (0.0-7.0); Hematocrit 27.3 % (36.0-46.0); Hemoglobin 8.9 g/dL (12.2-16.2); Lymphocytes # (auto) 0.8 10 ^3/uL (0.4-5.4); Lymphocytes % (auto) 14.6 % (10.0-50.0); Mean Corpuscular Hgb Conc. 32.5 g/dL (32.0-36.0); Mean Corpuscular Volume 95.5 fL (80.0-100.0); Monocytes # (auto) 0.6 10 ^3/uL (0-1.3); Monocytes % (auto) 11.7 % (0.0-12.0); Neutrophils # (auto) 3.6 10 ^3/uL (1.6-8.6); Neutrophils % (auto) 69.5 % (37.0-80.0); Red Blood Cells 2.86 10^6/uL (4.0-5.20); Red Cell Distribution Width 20.7 % (11.8-14.3); White Blood Cell 5.2 10^3/uL (4.4-10.8)
[2021-08-01 07:06] LABS: Potassium 3.7 mmol/L (3.5-5.1)
[2021-08-01 07:20] LABS: Albumin 2.1 g/dL (3.4-5.0); BUN/Creatinine Ratio 29.4; Bilirubin, Total 0.4 mg/dL (0.2-1.0); Calcium 7.9 mg/dL (8.5-10.1); Magnesium 2.2 mg/dL (1.6-2.6); Phosphorus 3.1 mg/dL (2.5-4.90); Total Protein 5.5 g/dL (6.4-8.2)
[2021-08-01] MEDS: MEROPENEM 1GM IVPB 100 ML IV SCH ×2 (10:27→22:18)
[2021-08-01] MEDS: LINEZOLID 600MG/300ML 300 ML IV SCH ×2 (10:28→22:18)
[2021-08-01] MEDS: FLORASTOR (S. BOULARDII) 250 MG CAP PO SCH (10:29)
[2021-08-01] MEDS: SODIUM CHLORIDE 0.9% 1,000 ML IV SCH ×2 (10:30→11:36)
[2021-08-01] MEDS ORDERED: TPN PER PHARMACY IV NR ×8 (20:00)
[2021-08-01] MEDS: FAMOTIDINE (10MG/ML) 2ML VL IV SCH (22:18)
[2021-08-02 05:00] VITALS: BP 100/58
[2021-08-02] MEDS: InsuLIN REG 1unit/0.01ml Soln (100units/ml) SC SCH ×4 (05:40→17:09)
[2021-08-02] MEDS: ACCU-CHEK COMFORT CURVE STRIP VI SCH ×4 (05:41→17:08)
[2021-08-02] MEDS: SODIUM CHLOR 0.9% PF (SALINE LOCK) 10ML VIAL/SYR IV SCH ×3 (05:42→21:51)
[2021-08-02 06:27] LABS: Calcium 7.7 mg/dL (8.5-10.1); Magnesium 2.2 mg/dL (1.6-2.6); Potassium 3.6 mmol/L (3.5-5.1)
[2021-08-02 06:30] LABS: BUN/Creatinine Ratio 29.3; Phosphorus 3.1 mg/dL (2.5-4.90)
[2021-08-02 08:52] VITALS: BP 102/57
[2021-08-02] MEDS: MEROPENEM 1GM IVPB 100 ML IV SCH ×2 (09:29→21:51)
[2021-08-02] MEDS: LINEZOLID 600MG/300ML 300 ML IV SCH ×2 (09:29→21:51)
[2021-08-02] MEDS: FLORASTOR (S. BOULARDII) 250 MG CAP PO SCH (09:29)
[2021-08-02 10:43] LABS: Basophils # (auto) 0 10 ^3/uL (0-0.2); Basophils % (auto) 0.6 % (0.0-2.0); Eosinophils # (auto) 0.2 10 ^3/uL (0-0.8); Eosinophils % (auto) 3.3 % (0.0-7.0); Hematocrit 26.7 % (36.0-46.0); Hemoglobin 8.5 g/dL (12.2-16.2); Lymphocytes # (auto) 0.8 10 ^3/uL (0.4-5.4); Lymphocytes % (auto) 14.6 % (10.0-50.0); Mean Corpuscular Hemoglobin 29.9 pg (28.0-32.0); Mean Corpuscular Hgb Conc. 31.8 g/dL (32.0-36.0); Mean Corpuscular Volume 94.1 fL (80.0-100.0); Monocytes # (auto) 0.6 10 ^3/uL (0-1.3); Monocytes % (auto) 10.1 % (0.0-12.0); Neutrophils # (auto) 4.1 10 ^3/uL (1.6-8.6); Neutrophils % (auto) 71.4 % (37.0-80.0); Red Blood Cells 2.84 10^6/uL (4.0-5.20); White Blood Cell 5.7 10^3/uL (4.4-10.8)
[2021-08-02 10:51] LABS: Red Cell Distribution Width 21.1 % (11.8-14.3)
[2021-08-02] MEDS ORDERED: GOLYTELY 4L KIT PO ONE ×2 (12:45→13:15)
[2021-08-02 12:57] LABS: INR 1.1 (0.9-1.15)
[2021-08-02 13:15] VITALS: BP 106/55
[2021-08-02 17:43] VITALS: BP 106/60
[2021-08-02] MEDS ORDERED: TPN PER PHARMACY IV NR ×9 (20:00)
[2021-08-02] MEDS: FAMOTIDINE (10MG/ML) 2ML VL IV SCH (21:51)
[2021-08-02 22:00] VITALS: BP 107/59
[2021-08-03] MEDS: SODIUM CHLORIDE 0.9% 1,000 ML IV SCH ×2 (02:45→21:42)
[2021-08-03 04:53] LABS: Basophils # (auto) 0 10 ^3/uL (0-0.2); Basophils % (auto) 0.5 % (0.0-2.0); Eosinophils # (auto) 0.2 10 ^3/uL (0-0.8); Eosinophils % (auto) 3.5 % (0.0-7.0); Hematocrit 26.4 % (36.0-46.0); Hemoglobin 8.8 g/dL (12.2-16.2); Lymphocytes % (auto) 19.8 % (10.0-50.0); Mean Corpuscular Hemoglobin 31.1 pg (28.0-32.0); Mean Corpuscular Hgb Conc. 33.4 g/dL (32.0-36.0); Mean Corpuscular Volume 93.2 fL (80.0-100.0); Monocytes # (auto) 0.5 10 ^3/uL (0-1.3); Monocytes % (auto) 9.6 % (0.0-12.0); Neutrophils # (auto) 3.3 10 ^3/uL (1.6-8.6); Neutrophils % (auto) 66.6 % (37.0-80.0); Nucleated Red Blood Cells % 0.1 %; Red Blood Cells 2.84 10^6/uL (4.0-5.20)
[2021-08-03 04:54] LABS: Red Cell Distribution Width 20.8 % (11.8-14.3)
[2021-08-03 05:00] VITALS: BP 113/59
[2021-08-03 05:13] LABS: Albumin 2.1 g/dL (3.4-5.0); Calcium 7.9 mg/dL (8.5-10.1); Magnesium 2.2 mg/dL (1.6-2.6); Potassium 3.8 mmol/L (3.5-5.1)
[2021-08-03 05:16] LABS: BUN/Creatinine Ratio 26.7; Bilirubin, Total 0.4 mg/dL (0.2-1.0); Phosphorus 2.9 mg/dL (2.5-4.90); Total Protein 5.8 g/dL (6.4-8.2)
[2021-08-03] MEDS: ACCU-CHEK COMFORT CURVE STRIP VI SCH ×5 (06:00→23:42)
[2021-08-03] MEDS: InsuLIN REG 1unit/0.01ml Soln (100units/ml) SC SCH ×5 (06:00→23:43)
[2021-08-03] MEDS: SODIUM CHLOR 0.9% PF (SALINE LOCK) 10ML VIAL/SYR IV SCH ×3 (06:00→21:41)
[2021-08-03 07:09] LABS: INR 1.16 (0.9-1.15); Partial Thromboplastin Time 32.5 sec (23.6-33.0)
[2021-08-03 09:00] VITALS: BP 111/58
[2021-08-03] MEDS: MEROPENEM 1GM IVPB 100 ML IV SCH (09:31)
[2021-08-03] MEDS: FLORASTOR (S. BOULARDII) 250 MG CAP PO SCH (09:31)
[2021-08-03] MEDS: LINEZOLID 600MG/300ML 300 ML IV SCH ×2 (09:31→21:41)
[2021-08-03] MEDS ORDERED: diphenhdrAMINE HCL 50 MG/1 ML VL ONE (10:22)
[2021-08-03] MEDS ORDERED: SODIUM CHLORIDE LOCK 10 ML ONE (10:22)
[2021-08-03] MEDS ORDERED: levoFLOXacin 750MG 150 ML IV ONE (12:15)
[2021-08-03 12:41] VITALS: BP 113/52
[2021-08-03] MEDS: MIDAZOLAM HCL 5 MG/ML-1ML VIAL ONE ×2 (13:23→13:30)
[2021-08-03] MEDS: fentaNYL CITRATE 100 MCG/2 ML VL ONE ×2 (13:23→16:20)
[2021-08-03 16:31] VITALS: BP 99/56
[2021-08-03] MEDS ORDERED: TPN PER PHARMACY IV NR ×10 (20:00)
[2021-08-03 21:43] VITALS: BP 108/58
[2021-08-04 04:43] VITALS: BP 98/60
[2021-08-04 04:58] LABS: Basophils # (auto) 0 10 ^3/uL (0-0.2); Basophils % (auto) 0.6 % (0.0-2.0); Eosinophils # (auto) 0.3 10 ^3/uL (0-0.8); Eosinophils % (auto) 6.4 % (0.0-7.0); Hematocrit 24.3 % (36.0-46.0); Hemoglobin 8.3 g/dL (12.2-16.2); Lymphocytes # (auto) 1.1 10 ^3/uL (0.4-5.4); Mean Corpuscular Hemoglobin 31.5 pg (28.0-32.0); Mean Corpuscular Volume 92.6 fL (80.0-100.0); Monocytes # (auto) 0.3 10 ^3/uL (0-1.3); Monocytes % (auto) 6.4 % (0.0-12.0); Neutrophils # (auto) 3.3 10 ^3/uL (1.6-8.6); Neutrophils % (auto) 64.6 % (37.0-80.0); Red Blood Cells 2.63 10^6/uL (4.0-5.20); White Blood Cell 5.1 10^3/uL (4.4-10.8)
[2021-08-04 05:00] LABS: Red Cell Distribution Width 20.8 % (11.8-14.3)
[2021-08-04 05:12] LABS: Calcium 7.9 mg/dL (8.5-10.1); Magnesium 2.1 mg/dL (1.6-2.6); Potassium 3.8 mmol/L (3.5-5.1)
[2021-08-04 05:15] LABS: BUN/Creatinine Ratio 33.3; Bilirubin, Total 0.3 mg/dL (0.2-1.0); Phosphorus 3.7 mg/dL (2.5-4.90); Total Protein 5.4 g/dL (6.4-8.2)
[2021-08-04] MEDS: InsuLIN REG 1unit/0.01ml Soln (100units/ml) SC SCH ×4 (05:54→23:55)
[2021-08-04] MEDS: SODIUM CHLOR 0.9% PF (SALINE LOCK) 10ML VIAL/SYR IV SCH ×3 (05:55→21:38)
[2021-08-04] MEDS: ACCU-CHEK COMFORT CURVE STRIP VI SCH ×4 (05:55→23:49)
[2021-08-04 09:00] VITALS: BP 112/57
[2021-08-04] MEDS: FLORASTOR (S. BOULARDII) 250 MG CAP PO SCH (10:15)
[2021-08-04] MEDS: LINEZOLID 600MG/300ML 300 ML IV SCH ×2 (10:15→21:39)
[2021-08-04] MEDS: levoFLOXacin 750MG 150 ML IV SCH (10:17)
[2021-08-04 13:00] VITALS: BP 115/62
[2021-08-04 17:00] VITALS: BP 122/65
[2021-08-04] MEDS: SODIUM CHLORIDE 0.9% 1,000 ML IV SCH (18:45)
[2021-08-04] MEDS ORDERED: TPN PER PHARMACY IV NR ×10 (20:00)
[2021-08-04 22:09] VITALS: BP 115/61
[2021-08-05 05:04] VITALS: BP 124/67
[2021-08-05] MEDS: InsuLIN REG 1unit/0.01ml Soln (100units/ml) SC SCH ×4 (06:00→23:55)
[2021-08-05] MEDS: SODIUM CHLOR 0.9% PF (SALINE LOCK) 10ML VIAL/SYR IV SCH ×3 (06:04→21:16)
[2021-08-05] MEDS: ACCU-CHEK COMFORT CURVE STRIP VI SCH ×4 (06:05→23:55)
[2021-08-05 06:47] LABS: Calcium 8.4 mg/dL (8.5-10.1); Potassium 4.3 mmol/L (3.5-5.1)
[2021-08-05 06:54] LABS: Albumin 2.2 g/dL (3.4-5.0); BUN/Creatinine Ratio 38.1; Bilirubin, Total 0.3 mg/dL (0.2-1.0); Magnesium 2.2 mg/dL (1.6-2.6); Phosphorus 3.4 mg/dL (2.5-4.90); Total Protein 5.9 g/dL (6.4-8.2)
[2021-08-05 09:20] VITALS: BP 111/68
[2021-08-05] MEDS: FLORASTOR (S. BOULARDII) 250 MG CAP PO SCH (10:15)
[2021-08-05] MEDS: levoFLOXacin 750MG 150 ML IV SCH (10:15)
[2021-08-05] MEDS: LINEZOLID 600MG/300ML 300 ML IV SCH ×2 (10:16→21:17)
[2021-08-05 13:00] VITALS: BP 117/65
[2021-08-05] MEDS ORDERED: SACC250C PO (13:30)
[2021-08-05 16:21] VITALS: BP 106/60
[2021-08-05] MEDS ORDERED: TPN PER PHARMACY IV NR ×11 (20:00)
[2021-08-05 21:32] VITALS: BP 119/59
[2021-08-06 05:00] VITALS: BP 111/64
[2021-08-06] MEDS: SODIUM CHLOR 0.9% PF (SALINE LOCK) 10ML VIAL/SYR IV SCH ×3 (05:53→21:45)
[2021-08-06] MEDS: ACCU-CHEK COMFORT CURVE STRIP VI SCH ×3 (05:53→18:46)
[2021-08-06] MEDS: InsuLIN REG 1unit/0.01ml Soln (100units/ml) SC SCH ×3 (05:54→18:00)
[2021-08-06 06:25] LABS: Calcium 8.6 mg/dL (8.5-10.1); Potassium 4.3 mmol/L (3.5-5.1)
[2021-08-06 06:30] LABS: Albumin 2.5 g/dL (3.4-5.0); Bilirubin, Total 0.3 mg/dL (0.2-1.0); Magnesium 2.2 mg/dL (1.6-2.6); Phosphorus 3.9 mg/dL (2.5-4.90); Total Protein 6.4 g/dL (6.4-8.2)
[2021-08-06 09:03] VITALS: BP 114/58
[2021-08-06] MEDS: levoFLOXacin 750MG 150 ML IV SCH (09:54)
[2021-08-06] MEDS: FLORASTOR (S. BOULARDII) 250 MG CAP PO SCH (09:55)
[2021-08-06] MEDS: LINEZOLID 600MG/300ML 300 ML IV SCH ×2 (12:35→21:46)
[2021-08-06 13:05] VITALS: BP 128/56
[2021-08-06 17:00] VITALS: BP 111/59
[2021-08-06] MEDS ORDERED: TPN PER PHARMACY IV NR ×10 (20:00)
[2021-08-06 21:30] VITALS: BP 97/66
[2021-08-07] MEDS: ACCU-CHEK COMFORT CURVE STRIP VI SCH ×5 (00:02→23:54)
[2021-08-07] MEDS: InsuLIN REG 1unit/0.01ml Soln (100units/ml) SC SCH ×5 (00:04→23:56)
[2021-08-07 05:00] VITALS: BP 96/51
[2021-08-07] MEDS: SODIUM CHLOR 0.9% PF (SALINE LOCK) 10ML VIAL/SYR IV SCH ×3 (05:33→22:39)
[2021-08-07 06:33] LABS: Hematocrit 29.2 % (36.0-46.0); Hemoglobin 9.6 g/dL (12.2-16.2)
[2021-08-07 06:41] LABS: Albumin 2.6 g/dL (3.4-5.0); BUN/Creatinine Ratio 41.1; Magnesium 2.2 mg/dL (1.6-2.6); Potassium 4.4 mmol/L (3.5-5.1)
[2021-08-07 06:44] LABS: Bilirubin, Total 0.4 mg/dL (0.2-1.0); Phosphorus 4.3 mg/dL (2.5-4.90); Total Protein 6.4 g/dL (6.4-8.2)
[2021-08-07 09:00] VITALS: BP 100/51
[2021-08-07] MEDS: levoFLOXacin 750MG 150 ML IV SCH (10:04)
[2021-08-07] MEDS: FLORASTOR (S. BOULARDII) 250 MG CAP PO SCH (10:05)
[2021-08-07] MEDS: LINEZOLID 600MG/300ML 300 ML IV SCH ×2 (10:05→22:34)
[2021-08-07] MEDS ORDERED: SODIUM CHLORIDE 0.9% 1,000 ML IV ONE (11:15)
[2021-08-07 13:00] VITALS: BP 100/56
[2021-08-07 17:00] VITALS: BP 105/53
[2021-08-07] MEDS ORDERED: TPN PER PHARMACY IV NR ×9 (20:00)
[2021-08-07 22:05] VITALS: BP 103/62
[2021-08-08 05:16] VITALS: BP 94/51
[2021-08-08] MEDS: SODIUM CHLOR 0.9% PF (SALINE LOCK) 10ML VIAL/SYR IV SCH ×3 (05:31→21:11)
[2021-08-08] MEDS: InsuLIN REG 1unit/0.01ml Soln (100units/ml) SC SCH ×3 (05:36→17:54)
[2021-08-08] MEDS: ACCU-CHEK COMFORT CURVE STRIP VI SCH ×3 (05:36→17:54)
[2021-08-08 07:11] LABS: Albumin 2.5 g/dL (3.4-5.0); Calcium 8.7 mg/dL (8.5-10.1); Potassium 4.2 mmol/L (3.5-5.1)
[2021-08-08 09:20] VITALS: BP 96/52
[2021-08-08] MEDS: FLORASTOR (S. BOULARDII) 250 MG CAP PO SCH (09:38)
[2021-08-08] MEDS: levoFLOXacin 750MG 150 ML IV SCH (09:38)
[2021-08-08] MEDS: LINEZOLID 600MG/300ML 300 ML IV SCH (11:00)
[2021-08-08 12:31] VITALS: BP 112/52
[2021-08-08] MEDS ORDERED: TPN PER PHARMACY IV NR ×9 (20:00)
[2021-08-08 22:00] VITALS: BP 96/57
[2021-08-09] MEDS: ACCU-CHEK COMFORT CURVE STRIP VI SCH ×4 (01:05→18:05)
[2021-08-09 05:00] VITALS: BP 96/57
[2021-08-09] MEDS: InsuLIN REG 1unit/0.01ml Soln (100units/ml) SC SCH ×4 (06:00→18:00)
[2021-08-09] MEDS: SODIUM CHLOR 0.9% PF (SALINE LOCK) 10ML VIAL/SYR IV SCH ×2 (06:35→14:24)
[2021-08-09 07:18] LABS: Albumin 2.5 g/dL (3.4-5.0); BUN/Creatinine Ratio 43.9; Bilirubin, Total 0.3 mg/dL (0.2-1.0); Calcium 8.4 mg/dL (8.5-10.1); Magnesium 2.1 mg/dL (1.6-2.6); Total Protein 6.3 g/dL (6.4-8.2)
[2021-08-09 09:00] VITALS: BP 97/55
[2021-08-09] MEDS: FLORASTOR (S. BOULARDII) 250 MG CAP PO SCH (10:08)
[2021-08-09] MEDS: levoFLOXacin 750MG 150 ML IV SCH (10:08)
[2021-08-09 13:00] VITALS: BP 90/51
[2021-08-09] MEDS: SODIUM CHLORIDE 0.9% 1,000 ML IV SCH (14:24)
[2021-08-09 17:00] VITALS: BP 95/51
[2021-08-09] MEDS ORDERED: TPN PER PHARMACY IV NR ×9 (20:00)
[2021-08-09 22:00] VITALS: BP 100/51
[2021-08-10] MEDS: SODIUM CHLOR 0.9% PF (SALINE LOCK) 10ML VIAL/SYR IV SCH ×4 (00:15→22:20)
[2021-08-10] MEDS: ACCU-CHEK COMFORT CURVE STRIP VI SCH ×4 (00:15→17:12)
[2021-08-10 05:00] VITALS: BP 109/49
[2021-08-10] MEDS: SODIUM CHLORIDE 0.9% 1,000 ML IV SCH ×2 (05:10→22:20)
[2021-08-10] MEDS: InsuLIN REG 1unit/0.01ml Soln (100units/ml) SC SCH ×4 (05:10→17:12)
[2021-08-10 07:32] LABS: Basophils # (auto) 0 10 ^3/uL (0-0.2); Basophils % (auto) 0.8 % (0.0-2.0); Eosinophils # (auto) 0.1 10 ^3/uL (0-0.8); Hematocrit 28.4 % (36.0-46.0); Hemoglobin 9.4 g/dL (12.2-16.2); Lymphocytes # (auto) 1.3 10 ^3/uL (0.4-5.4); Lymphocytes % (auto) 27.3 % (10.0-50.0); Mean Corpuscular Hemoglobin 31.3 pg (28.0-32.0); Mean Corpuscular Hgb Conc. 33.2 g/dL (32.0-36.0); Mean Corpuscular Volume 94.2 fL (80.0-100.0); Monocytes # (auto) 0.6 10 ^3/uL (0-1.3); Monocytes % (auto) 13.2 % (0.0-12.0); Neutrophils # (auto) 2.7 10 ^3/uL (1.6-8.6); Neutrophils % (auto) 55.7 % (37.0-80.0); Nucleated Red Blood Cells % 0.1 %; Red Blood Cells 3.01 10^6/uL (4.0-5.20); White Blood Cell 4.9 10^3/uL (4.4-10.8)
[2021-08-10 07:49] LABS: Albumin 2.6 g/dL (3.4-5.0); BUN/Creatinine Ratio 52.1; Calcium 8.9 mg/dL (8.5-10.1); Magnesium 2.1 mg/dL (1.6-2.6); Potassium 4.1 mmol/L (3.5-5.1); Red Cell Distribution Width 22.7 % (11.8-14.3)
[2021-08-10 07:52] LABS: Bilirubin, Total 0.3 mg/dL (0.2-1.0); Phosphorus 3.9 mg/dL (2.5-4.90); Total Protein 6.1 g/dL (6.4-8.2)
[2021-08-10 09:00] VITALS: BP 107/52
[2021-08-10] MEDS: levoFLOXacin 750MG 150 ML IV SCH (10:00)
[2021-08-10] MEDS: FLORASTOR (S. BOULARDII) 250 MG CAP PO SCH (10:00)
[2021-08-10 13:00] VITALS: BP 96/59
[2021-08-10 17:00] VITALS: BP 97/50
[2021-08-10] MEDS ORDERED: TPN PER PHARMACY IV NR ×8 (20:00)
[2021-08-10 22:00] VITALS: BP 106/53
[2021-08-11] MEDS: ACCU-CHEK COMFORT CURVE STRIP VI SCH ×4 (00:15→18:14)
[2021-08-11 05:00] VITALS: BP 113/56
[2021-08-11] MEDS: SODIUM CHLOR 0.9% PF (SALINE LOCK) 10ML VIAL/SYR IV SCH ×3 (05:21→21:08)
[2021-08-11] MEDS: InsuLIN REG 1unit/0.01ml Soln (100units/ml) SC SCH ×4 (05:21→18:00)
[2021-08-11 05:23] LABS: Albumin 2.6 g/dL (3.4-5.0); Calcium 8.7 mg/dL (8.5-10.1); Magnesium 2.1 mg/dL (1.6-2.6); Potassium 3.8 mmol/L (3.5-5.1)
[2021-08-11 05:27] LABS: Bilirubin, Total 0.4 mg/dL (0.2-1.0); Phosphorus 3.7 mg/dL (2.5-4.90); Total Protein 6.3 g/dL (6.4-8.2)
[2021-08-11 09:12] VITALS: BP 106/49
[2021-08-11] MEDS: FLORASTOR (S. BOULARDII) 250 MG CAP PO SCH (10:15)
[2021-08-11] MEDS: levoFLOXacin 750MG 150 ML IV SCH (10:15)
[2021-08-11 13:11] VITALS: BP 98/46
[2021-08-11] MEDS: SODIUM CHLORIDE 0.9% 1,000 ML IV SCH (14:30)
[2021-08-11 16:57] VITALS: BP 103/59
[2021-08-11] MEDS ORDERED: TPN PER PHARMACY IV NR ×8 (20:00)
[2021-08-11 22:00] VITALS: BP 101/61
[2021-08-12] MEDS: ACCU-CHEK COMFORT CURVE STRIP VI SCH ×3 (00:22→11:17)
[2021-08-12 04:58] LABS: Albumin 2.6 g/dL (3.4-5.0); Calcium 8.5 mg/dL (8.5-10.1); Magnesium 2.1 mg/dL (1.6-2.6); Potassium 3.8 mmol/L (3.5-5.1)
[2021-08-12 05:00] VITALS: BP 112/61
[2021-08-12] MEDS: InsuLIN REG 1unit/0.01ml Soln (100units/ml) SC SCH ×3 (05:00→11:17)
[2021-08-12] MEDS: SODIUM CHLOR 0.9% PF (SALINE LOCK) 10ML VIAL/SYR IV SCH (05:00)
[2021-08-12 05:02] LABS: BUN/Creatinine Ratio 40.8; Bilirubin, Total 0.3 mg/dL (0.2-1.0); Total Protein 6.2 g/dL (6.4-8.2)
[2021-08-12 08:00] VITALS: BP 119/60
[2021-08-12] MEDS: SODIUM CHLORIDE 0.9% 1,000 ML IV SCH (09:19)
[2021-08-12] MEDS: FLORASTOR (S. BOULARDII) 250 MG CAP PO SCH (09:19)
[2021-08-12] MEDS: levoFLOXacin 750MG 150 ML IV SCH (09:19)
[2021-08-12 12:00] VITALS: BP 112/59
[2021-08-12] MEDS ORDERED: TPN PER PHARMACY IV NR ×9 (20:00)
== END 2021-08-12 14:23 | disposition home health service (06) | DRG 872 ==
LOC: ER 09:45 → OVERFLOW 15:59 → CENTRAL 20:16
PROVIDERS: ADMIT Internal Medicine; ATTEND Internal Medicine
PROC: 02HV33Z Insertion of Infusion Device into Superior Vena Cava, Percutaneous Approach (ICD-10-PCS; 2021-07-29)
PROC: 30233N1 Transfusion of Nonautologous Red Blood Cells into Peripheral Vein, Percutaneous Approach (ICD-10-PCS; 2021-07-31)
PROC: 0DBL8ZX Excision of Transverse Colon, Via Natural or Artificial Opening Endoscopic, Diagnostic (ICD-10-PCS; principal; 2021-08-03 12:45)
DX: A41.2 Sepsis due to unspecified staphylococcus (principal); K63.2 Fistula of intestine; N39.0 Urinary tract infection, site not specified; I44.0 Atrioventricular block, first degree; K52.9 Noninfective gastroenteritis and colitis, unspecified; E87.6 Hypokalemia; D63.8 Anemia in other chronic diseases classified elsewhere; K57.90 Diverticulosis of intestine, part unspecified, without perforation or abscess without bleeding; Z20.822 Contact with and (suspected) exposure to COVID-19; S31.105A Unspecified open wound of abdominal wall, periumbilic region without penetration into peritoneal cavity, initial encounter; X58.XXXA Exposure to other specified factors, initial encounter; K63.5 Polyp of colon; Z80.8 Family history of malignant neoplasm of other organs or systems; Z82.49 Family history of ischemic heart disease and other diseases of the circulatory system; Z90.49 Acquired absence of other specified parts of digestive tract; Z90.710 Acquired absence of both cervix and uterus; Z88.8 Allergy status to other drugs, medicaments and biological substances; Y93.89 Activity, other specified; Y92.89 Other specified places as the place of occurrence of the external cause; Y99.8 Other external cause status
CPT/HCPCS: 36415; 71045; 74177; 74270; 80053; 80069; 81001; 82962; 83605; 83735; 83880; 84100; 84443; 84478; 84484; 85007; 85014; 85018; 85025; 85027; 85610; 85730; 86850; 86900; 86901; 86920; 87040; 87077; 87186; 87205; 87493; 93005; 96361; 96365; 99291; G0378; J1815; J1956; J2185; J2250; J3480; J3490; J7060

== ENCOUNTER 2022-04-10 11:39 | Inpatient (IN) | payer BC ==
[~2022-04-10] VITALS: Ht 152.4 cm; Wt 58.3 kg
[~2022-04-10 11:39] MED LIST changes: +AMOX-277 PO; -LINE1TAB5 GT; +LOS25T PO; -SIMV-8 PO
[2022-04-10] MEDS ORDERED: VANCOMYCIN 1GM/250ML 250 ML IV ONE (12:15)
[2022-04-10] MEDS ORDERED: LACTATED RINGER'S 1,000 ML IV ONE (12:15)
[2022-04-10] MEDS ORDERED: PIPERACILLIN-TAZOB 3.375GM 100 ML IV ONE ×2 (12:15→18:00)
[2022-04-10 13:10] LABS: Basophils # (auto) 0.2 10 ^3/uL (0-0.2); Basophils % (auto) 1.5 % (0.0-2.0); Eosinophils # (auto) 0 10 ^3/uL (0-0.8); Eosinophils % (auto) 0.3 % (0.0-7.0); Hematocrit 31.8 % (36.0-46.0); Hemoglobin 10.5 g/dL (12.2-16.2); Lymphocytes # (auto) 0.7 10 ^3/uL (0.4-5.4); Mean Corpuscular Hemoglobin 27.7 pg (28.0-32.0); Mean Corpuscular Hgb Conc. 33.1 g/dL (32.0-36.0); Mean Corpuscular Volume 83.9 fL (80.0-100.0); Monocytes # (auto) 0.4 10 ^3/uL (0-1.3); Monocytes % (auto) 3.3 % (0.0-12.0); Neutrophils # (auto) 10.3 10 ^3/uL (1.6-8.6); Neutrophils % (auto) 88.9 % (37.0-80.0); Red Blood Cells 3.79 10^6/uL (4.0-5.20); Red Cell Distribution Width 17.2 % (11.8-14.3); White Blood Cell 11.6 10^3/uL (4.4-10.8)
[2022-04-10 13:24] LABS: INR 1.13 (0.9-1.15); Partial Thromboplastin Time 32.1 sec (24.6-33.4)
[2022-04-10 13:33] LABS: Albumin 2.5 g/dL (3.4-5.0); Calcium 8.7 mg/dL (8.5-10.1); Magnesium 2.1 mg/dL (1.6-2.6)
[2022-04-10 13:36] LABS: Bilirubin, Total 0.9 mg/dL (0.2-1.0)
[2022-04-10] MEDS ORDERED: IOHEXOL 350 MG/ML 100ML IJ ONE (14:41)
[2022-04-10] MEDS ORDERED: ASPirin 325 MG TAB PO ONE (14:45)
[2022-04-10] MEDS ORDERED: LACTATED RINGER'S 2,000 ML IV ONE (16:30)
[2022-04-10] MEDS: LACTATED RINGER'S 1,650 ML IV ONE ×3 (17:07→19:43)
[2022-04-10] MEDS ORDERED: metroNIDAZOLE 500MG/100ML 100 ML IV ONE (17:30)
[2022-04-10] MEDS ORDERED: VANCOMYCIN PER PHARMACY 0 MG IV SCH (18:00)
[2022-04-10] MEDS ORDERED: ACETAMINOPHEN 325 MG TAB PO PRN (18:00)
[2022-04-10] MEDS ORDERED: PANTOPRAZOLE 40 MG/10 ML VIAL INJ IV ONE (18:00)
[2022-04-10] MEDS ORDERED: MORPHINE SULFATE INJ 2 MG/ml SYRG IV PRN (18:00)
[2022-04-10] MEDS ORDERED: NITROGLYCERIN 0.4 MG SL TAB SL PRN (18:00)
[2022-04-10 19:09] LABS: Urine Bacteria FEW /hpf (None Seen); Urine Blood TRACE /uL (Negative); Urine Mucus FEW (None Seen); Urine WBC 62 /hpf (0 - 5)
[2022-04-10 19:20] LABS: Urine Specific Gravity > 1.050 (1.001-1.035)
[2022-04-10] MEDS: ASCORBIC ACID 500 MG TAB PO SCH (22:05)
[2022-04-10] MEDS: HYDROcodone-ACET 5/325MG TAB PO PRN (22:39)
[2022-04-10] MEDS: SODIUM CHLORIDE 0.9% 1,000 ML IV SCH (22:39)
[2022-04-10] MEDS: PIPERACILLIN-TAZOB 3.375GM 100 ML IV SCH (22:39)
[2022-04-11] MEDS: PIPERACILLIN-TAZOB 3.375GM 100 ML IV SCH ×3 (03:08→11:16)
[2022-04-11] MEDS: HYDROcodone-ACET 5/325MG TAB PO PRN (03:08)
[2022-04-11] MEDS: SODIUM CHLORIDE 0.9% 1,000 ML IV SCH ×2 (04:01→14:40)
[2022-04-11 06:03] LABS: Basophils # (auto) 0 10 ^3/uL (0-0.2); Eosinophils # (auto) 0 10 ^3/uL (0-0.8); Hemoglobin 8.3 g/dL (12.2-16.2); Lymphocytes # (auto) 0.9 10 ^3/uL (0.4-5.4)
[2022-04-11 06:05] LABS: Basophils % (auto) 0.4 % (0.0-2.0); Eosinophils % (auto) 0.4 % (0.0-7.0); Hematocrit 24.6 % (36.0-46.0); Lymphocytes % (auto) 8.6 % (10.0-50.0); Mean Corpuscular Hemoglobin 28.2 pg (28.0-32.0); Mean Corpuscular Hgb Conc. 33.7 g/dL (32.0-36.0); Mean Corpuscular Volume 83.7 fL (80.0-100.0); Monocytes # (auto) 0.6 10 ^3/uL (0-1.3); Monocytes % (auto) 5.7 % (0.0-12.0); Neutrophils # (auto) 8.6 10 ^3/uL (1.6-8.6); Neutrophils % (auto) 84.9 % (37.0-80.0); Nucleated Red Blood Cells % 0.1 %; Red Blood Cells 2.94 10^6/uL (4.0-5.20); Red Cell Distribution Width 16.7 % (11.8-14.3); White Blood Cell 10.1 10^3/uL (4.4-10.8)
[2022-04-11 06:19] LABS: Potassium 3.6 mmol/L (3.5-5.1)
[2022-04-11 06:23] LABS: Albumin 1.9 g/dL (3.4-5.0); BUN/Creatinine Ratio 23.6; Calcium 7.8 mg/dL (8.5-10.1)
[2022-04-11 06:26] LABS: Bilirubin, Total 0.6 mg/dL (0.2-1.0); Total Protein 5.7 g/dL (6.4-8.2)
[2022-04-11] MEDS: ASCORBIC ACID 500 MG TAB PO SCH ×2 (10:45→22:59)
[2022-04-11] MEDS: PANTOPRAZOLE 40 MG/10 ML VIAL INJ IV SCH (11:16)
[2022-04-11] MEDS: ASPirin 81 mg TAB PO SCH (11:17)
[2022-04-11] MEDS: ZINC SULFATE 220mg CAP or TAB PO SCH (11:17)
[2022-04-11] MEDS: ENOXAPARIN SOD 40 MG/0.4 ML SYRINGE SC SCH (11:18)
[2022-04-11] MEDS: MULTIPLE VITAMIN TAB PO SCH (11:19)
[2022-04-11] MEDS: VANCOMYCIN 1GM/250ML 250 ML IV SCH (13:57)
[2022-04-11] MEDS: MEROPENEM 1GM IVPB 100 ML IV SCH ×2 (14:35→23:01)
[2022-04-11 16:10] VITALS: BP 111/39
[2022-04-11 16:34] VITALS: BP 111/39
[2022-04-11 17:00] VITALS: BP 111/39
[2022-04-11 20:00] VITALS: BP 117/53
[2022-04-11 21:52] VITALS: BP 117/53
[2022-04-12] MEDS: VANCOMYCIN 1GM/250ML 250 ML IV SCH ×2 (03:52→19:15)
[2022-04-12 05:00] VITALS: BP 118/51
[2022-04-12] MEDS: MEROPENEM 1GM IVPB 100 ML IV SCH ×3 (05:39→22:32)
[2022-04-12 07:18] LABS: Basophils # (auto) 0 10 ^3/uL (0-0.2); Eosinophils # (auto) 0 10 ^3/uL (0-0.8); Monocytes # (auto) 0.5 10 ^3/uL (0-1.3)
[2022-04-12 07:20] LABS: Basophils % (auto) 0.5 % (0.0-2.0); Eosinophils % (auto) 0.2 % (0.0-7.0); Hematocrit 24.5 % (36.0-46.0); Hemoglobin 8.3 g/dL (12.2-16.2); Mean Corpuscular Hemoglobin 28.4 pg (28.0-32.0); Mean Corpuscular Hgb Conc. 33.8 g/dL (32.0-36.0); Mean Corpuscular Volume 83.9 fL (80.0-100.0); Monocytes % (auto) 4.9 % (0.0-12.0); Neutrophils # (auto) 8.4 10 ^3/uL (1.6-8.6); Neutrophils % (auto) 84.4 % (37.0-80.0); Red Blood Cells 2.92 10^6/uL (4.0-5.20); Red Cell Distribution Width 16.8 % (11.8-14.3)
[2022-04-12 07:47] LABS: BUN/Creatinine Ratio 20.7; Calcium 7.4 mg/dL (8.5-10.1); Potassium 3.7 mmol/L (3.5-5.1)
[2022-04-12 09:00] VITALS: BP 117/46
[2022-04-12] MEDS ORDERED: IOHEXOL 350 MG/ML 500ML BOTTLE IJ ONE (09:00)
[2022-04-12] MEDS ORDERED: GASTROGRAFIN 120 ML SOL ONE (09:23)
[2022-04-12] MEDS: SODIUM CHLORIDE 0.9% 1,000 ML IV SCH ×3 (10:00→20:03)
[2022-04-12] MEDS: ZINC SULFATE 220mg CAP or TAB PO SCH (10:56)
[2022-04-12] MEDS: PANTOPRAZOLE 40 MG/10 ML VIAL INJ IV SCH (10:56)
[2022-04-12] MEDS: ASPirin 81 mg TAB PO SCH (10:56)
[2022-04-12] MEDS: MULTIPLE VITAMIN TAB PO SCH (10:57)
[2022-04-12] MEDS: ENOXAPARIN SOD 40 MG/0.4 ML SYRINGE SC SCH (10:57)
[2022-04-12] MEDS: ASCORBIC ACID 500 MG TAB PO SCH ×2 (10:57→22:30)
[2022-04-12 13:00] VITALS: BP 111/48
[2022-04-12 17:00] VITALS: BP 117/52
[2022-04-12 20:00] VITALS: BP 113/51
[2022-04-13 03:52] VITALS: BP 113/51
[2022-04-13] MEDS: MEROPENEM 1GM IVPB 100 ML IV SCH (05:41)
[2022-04-13] MEDS: SODIUM CHLORIDE 0.9% 1,000 ML IV SCH ×2 (05:41→11:33)
[2022-04-13 06:15] LABS: Basophils # (auto) 0 10 ^3/uL (0-0.2); Basophils % (auto) 0.5 % (0.0-2.0); Eosinophils # (auto) 0 10 ^3/uL (0-0.8); Eosinophils % (auto) 0.4 % (0.0-7.0); Hemoglobin 8.4 g/dL (12.2-16.2); Lymphocytes # (auto) 0.8 10 ^3/uL (0.4-5.4); Lymphocytes % (auto) 10.3 % (10.0-50.0); Mean Corpuscular Hemoglobin 28.3 pg (28.0-32.0); Mean Corpuscular Hgb Conc. 33.5 g/dL (32.0-36.0); Mean Corpuscular Volume 84.4 fL (80.0-100.0); Monocytes # (auto) 0.4 10 ^3/uL (0-1.3); Monocytes % (auto) 5.3 % (0.0-12.0); Neutrophils # (auto) 6.8 10 ^3/uL (1.6-8.6); Neutrophils % (auto) 83.5 % (37.0-80.0); Red Blood Cells 2.96 10^6/uL (4.0-5.20); White Blood Cell 8.2 10^3/uL (4.4-10.8)
[2022-04-13 06:40] LABS: BUN/Creatinine Ratio 14.6; Calcium 7.4 mg/dL (8.5-10.1); Potassium 3.6 mmol/L (3.5-5.1)
[2022-04-13 08:00] VITALS: BP 127/79
[2022-04-13 09:00] VITALS: BP 127/79
[2022-04-13] MEDS: ZINC SULFATE 220mg CAP or TAB PO SCH (10:00)
[2022-04-13] MEDS: ENOXAPARIN SOD 40 MG/0.4 ML SYRINGE SC SCH (10:00)
[2022-04-13] MEDS: MULTIPLE VITAMIN TAB PO SCH (10:00)
[2022-04-13] MEDS: ASCORBIC ACID 500 MG TAB PO SCH ×2 (10:00→21:37)
[2022-04-13] MEDS: ASPirin 81 mg TAB PO SCH (10:00)
[2022-04-13] MEDS: VANCOMYCIN 1GM/250ML 250 ML IV SCH ×2 (11:30→21:37)
[2022-04-13] MEDS ORDERED: ONDANSETRON HCL 4 MG/2 ML VIAL IV ONE (12:15)
[2022-04-13] MEDS ORDERED: MIDAZOLAM HCL 2MG/2ML 2ml VIAL (1mg/ml) IV ONE (12:15)
[2022-04-13] MEDS ORDERED: fentaNYL CITRATE 100 MCG/2 ML VL IV ONE (12:15)
[2022-04-13] MEDS ORDERED: LIDOCAINE VISCOUS 2% 15ML UD PO ONE (12:15)
[2022-04-13] MEDS ORDERED: diphenhdrAMINE HCL 50 MG/1 ML VL IV ONE (12:15)
[2022-04-13] MEDS ORDERED: fentaNYL CITRATE 100 MCG/2 ML VL ONE (12:20)
[2022-04-13] MEDS ORDERED: MIDAZOLAM HCL 2MG/2ML 2ml VIAL (1mg/ml) ONE (12:20)
[2022-04-13 13:00] VITALS: BP 118/52
[2022-04-13 16:37] VITALS: BP 112/56
[2022-04-13] MEDS: ATORVASTATIN 20 MG TAB PO SCH (21:37)
[2022-04-13] MEDS: CEFEPIME 2 GM in SODIUM CHL 0.9% 50 ML IV SCH (23:04)
[2022-04-14] MEDS: SODIUM CHLORIDE 0.9% 1,000 ML IV SCH ×3 (02:00→21:41)
[2022-04-14 05:25] VITALS: BP 120/52
[2022-04-14] MEDS: CEFEPIME 2 GM in SODIUM CHL 0.9% 50 ML IV SCH ×3 (05:26→22:03)
[2022-04-14 06:41] LABS: Basophils # (auto) 0.1 10 ^3/uL (0-0.2); Basophils % (auto) 0.8 % (0.0-2.0); Eosinophils # (auto) 0.1 10 ^3/uL (0-0.8); Eosinophils % (auto) 0.7 % (0.0-7.0); Hematocrit 27.2 % (36.0-46.0); Hemoglobin 8.9 g/dL (12.2-16.2); Lymphocytes # (auto) 0.9 10 ^3/uL (0.4-5.4); Lymphocytes % (auto) 10.5 % (10.0-50.0); Mean Corpuscular Hgb Conc. 32.8 g/dL (32.0-36.0); Mean Corpuscular Volume 85.4 fL (80.0-100.0); Monocytes # (auto) 0.4 10 ^3/uL (0-1.3); Monocytes % (auto) 4.5 % (0.0-12.0); Neutrophils % (auto) 83.5 % (37.0-80.0); Nucleated Red Blood Cells % 0.1 %; Red Blood Cells 3.19 10^6/uL (4.0-5.20); Red Cell Distribution Width 17.3 % (11.8-14.3); White Blood Cell 8.4 10^3/uL (4.4-10.8)
[2022-04-14 07:02] LABS: Potassium 3.9 mmol/L (3.5-5.1)
[2022-04-14 07:17] LABS: Calcium 8.2 mg/dL (8.5-10.1)
[2022-04-14 09:00] VITALS: BP 131/55
[2022-04-14] MEDS: ZINC SULFATE 220mg CAP or TAB PO SCH (09:24)
[2022-04-14] MEDS: ASPirin 81 mg TAB PO SCH (09:24)
[2022-04-14] MEDS: VANCOMYCIN 1GM/250ML 250 ML IV SCH (09:24)
[2022-04-14] MEDS: ENOXAPARIN SOD 40 MG/0.4 ML SYRINGE SC SCH (09:25)
[2022-04-14] MEDS: MULTIPLE VITAMIN TAB PO SCH (09:25)
[2022-04-14] MEDS: ASCORBIC ACID 500 MG TAB PO SCH ×2 (09:25→21:40)
[2022-04-14] MEDS: LOSARTAN POTASSIUM 25 MG TAB PO SCH (09:25)
[2022-04-14] MEDS ORDERED: LISINOPRIL 10 MG TAB PO SCH (10:00)
[2022-04-14 13:00] VITALS: BP 116/51
[2022-04-14 16:38] VITALS: BP 110/48
[2022-04-14] MEDS: ATORVASTATIN 20 MG TAB PO SCH (21:40)
[2022-04-14 22:00] VITALS: BP 110/53
[2022-04-15 05:00] VITALS: BP 104/42
[2022-04-15] MEDS: CEFEPIME 2 GM in SODIUM CHL 0.9% 50 ML IV SCH ×2 (05:37→13:27)
[2022-04-15 08:00] VITALS: BP 122/43
[2022-04-15] MEDS: ENOXAPARIN SOD 40 MG/0.4 ML SYRINGE SC SCH (09:02)
[2022-04-15] MEDS: ASPirin 81 mg TAB PO SCH (09:02)
[2022-04-15] MEDS: LOSARTAN POTASSIUM 25 MG TAB PO SCH (09:03)
[2022-04-15] MEDS: ASCORBIC ACID 500 MG TAB PO SCH ×2 (09:03→22:10)
[2022-04-15] MEDS: MULTIPLE VITAMIN TAB PO SCH (09:03)
[2022-04-15] MEDS: ZINC SULFATE 220mg CAP or TAB PO SCH (09:03)
[2022-04-15] MEDS: SODIUM CHLORIDE 0.9% 1,000 ML IV SCH ×2 (09:05→17:11)
[2022-04-15] MEDS ORDERED: VANCOMYCIN 1GM/250ML 250 ML IV SCH (10:00)
[2022-04-15 12:00] VITALS: BP 106/39
[2022-04-15 16:00] VITALS: BP 108/42
[2022-04-15] MEDS: PENICILLIN G POTASSIUM 3,000,000 UNITS in D5W 5% 50 ML IV SCH ×2 (19:51→22:36)
[2022-04-15 22:00] VITALS: BP 105/46
[2022-04-15] MEDS: ATORVASTATIN 20 MG TAB PO SCH (22:10)
[2022-04-16] VITALS (7 sets, daily range): BP systolic 101–111; BP diastolic 35–59
[2022-04-16] MEDS: PENICILLIN G POTASSIUM 3,000,000 UNITS in D5W 5% 50 ML IV SCH ×6 (02:28→20:49)
[2022-04-16] MEDS: SODIUM CHLORIDE 0.9% 1,000 ML IV SCH ×3 (04:00→20:46)
[2022-04-16 06:49] LABS: Basophils # (auto) 0.1 10 ^3/uL (0-0.2); Eosinophils # (auto) 0.1 10 ^3/uL (0-0.8); Eosinophils % (auto) 1.1 % (0.0-7.0); Lymphocytes % (auto) 15.2 % (10.0-50.0); Mean Corpuscular Hemoglobin 28.3 pg (28.0-32.0); Mean Corpuscular Hgb Conc. 33.4 g/dL (32.0-36.0); Mean Corpuscular Volume 84.7 fL (80.0-100.0); Monocytes # (auto) 0.3 10 ^3/uL (0-1.3); Monocytes % (auto) 4.5 % (0.0-12.0); Neutrophils % (auto) 78.2 % (37.0-80.0); Red Blood Cells 3.18 10^6/uL (4.0-5.20); White Blood Cell 6.3 10^3/uL (4.4-10.8)
[2022-04-16] MEDS: ENOXAPARIN SOD 40 MG/0.4 ML SYRINGE SC SCH (11:33)
[2022-04-16] MEDS: ASCORBIC ACID 500 MG TAB PO SCH ×2 (11:33→20:49)
[2022-04-16] MEDS: MULTIPLE VITAMIN TAB PO SCH (11:33)
[2022-04-16] MEDS: ASPirin 81 mg TAB PO SCH (11:34)
[2022-04-16] MEDS: ZINC SULFATE 220mg CAP or TAB PO SCH (11:34)
[2022-04-16] MEDS: LOSARTAN POTASSIUM 25 MG TAB PO SCH (11:35)
[2022-04-16 11:52] LABS: Potassium 3.9 mmol/L (3.5-5.1)
[2022-04-16 11:53] LABS: BUN/Creatinine Ratio 15.4; Calcium 8.3 mg/dL (8.5-10.1)
[2022-04-16] MEDS: ATORVASTATIN 20 MG TAB PO SCH (20:49)
[2022-04-17] MEDS: PENICILLIN G POTASSIUM 3,000,000 UNITS in D5W 5% 50 ML IV SCH (01:32)
[2022-04-17 02:16] VITALS: BP 106/35
== END 2022-04-17 03:06 | disposition short-term general hospital (02) | DRG 871 ==
LOC: ER 11:39 → TELE 17:53 → TELE-WESTW 04-11 16:08
PROVIDERS: ADMIT Nurse Practitioner Family; ATTEND Internal Medicine Pulmonary Disease
PROC: B24BZZ4 Ultrasonography of Heart with Aorta, Transesophageal (ICD-10-PCS; principal; 2022-04-13)
DX: A40.9 Streptococcal sepsis, unspecified (principal); I21.A1 Myocardial infarction type 2; I33.0 Acute and subacute infective endocarditis; E44.0 Moderate protein-calorie malnutrition; N39.0 Urinary tract infection, site not specified; K63.2 Fistula of intestine; I50.32 Chronic diastolic (congestive) heart failure; A04.72 Enterocolitis due to Clostridium difficile, not specified as recurrent; Z20.822 Contact with and (suspected) exposure to COVID-19; E78.5 Hyperlipidemia, unspecified; I35.1 Nonrheumatic aortic (valve) insufficiency; I11.0 Hypertensive heart disease with heart failure; I50.9 Heart failure, unspecified; D63.8 Anemia in other chronic diseases classified elsewhere; K63.5 Polyp of colon; R73.03 Prediabetes; Z82.49 Family history of ischemic heart disease and other diseases of the circulatory system; Z80.8 Family history of malignant neoplasm of other organs or systems; Z90.49 Acquired absence of other specified parts of digestive tract; Z90.710 Acquired absence of both cervix and uterus; Z93.3 Colostomy status; Z88.8 Allergy status to other drugs, medicaments and biological substances; Z68.24 Body mass index [BMI] 24.0-24.9, adult
CPT/HCPCS: 36415; 71045; 71260; 72193; 74177; 74430; 80048; 80053; 80202; 81001; 83036; 83605; 83735; 83880; 84484; 85025; 85379; 85610; 85730; 86256; 86671; 86850; 86900; 86901; 87040; 87077; 87086; 87186; 87426; 87804; 93005; 93306; 93312; 96361; 96365; 97110; 97116; 97163; 97530; 99152; 99291; C9113; G0378; J2185; J2250; J2405; J2543; J3490; J7060